=== PATIENT | female | born 1935 | race Caucasian/White ===

== ENCOUNTER 2018-05-09 19:17 | Inpatient (IN) ==
[2018-05-09] MEDS ORDERED: 0.9 % Sodium Chloride 1,000 ML IVC ONE ×2 (19:29→21:19)
[2018-05-09] MEDS ORDERED: Pantoprazole 80 MG in 0.9 % Sodium Chloride 50 ML IVPB ONE (19:29)
[2018-05-09] MEDS ORDERED: Octreotide 50 MCG/ML SYRINGE IVP ONE (19:29)
[2018-05-09] MEDS ORDERED: 0.9 % Sodium Chloride 1,000 ML ONE (19:31)
--- NOTE | 2018-05-09 19:38 | Emergency Department Note ---
Disposition Clinical Impression: GI bleed Qualifiers: GI bleed type/associated pathology: unspecified gastrointestinal hemorrhage type Qualified Code(s): K92.2 - Gastrointestinal hemorrhage, unspecified Leukocytosis Qualifiers: Leukocytosis type: unspecified Qualified Code(s): D72.829 - Elevated white blood cell count, unspecified Anemia Qualifiers: Anemia type: unspecified type Qualified Code(s): D64.9 - Anemia, unspecified CKD (chronic kidney disease) Qualifiers: Chronic kidney disease stage: unspecified stage Qualified Code(s): N18.9 - Chronic kidney disease, unspecified Disposition: Admitted As Inpatient Condition: Fair Referrals: NONE,PCP [Primary Care Provider] - Time of Disposition: 21:12 General Adult HPI - General Stated complaint: gi bleed Time Seen by Provider: 05/09/18 19:28 Source: patient, family, EMS Mode of arrival: EMS Limitations: no limitations Nursing Notes Reviewed: Yes Vital Signs Reviewed: Yes - History of Present Illness HPI Narrative: Patient is an 82-year-old female that presents the emergency department due to vomiting blood and having blood in her stool. Family states that today they were visiting her in the nursing facility where she was doing rehabilitation after a TIA and she was started not feeling well and vomiting coffee-ground emesis as well as having dark colored stool. Patient states that she just has not been feeling well and is been having pain in her upper abdomen. Family states that she has recently been put on Lovenox with her Coumadin due to having a subtherapeutic INR of 1.1 on previous admission. Family also states that she has had a previous GI bleed in the past but says that is been a long time ago and she required an NG tube and Protonix. - Related Data Home Medications Medication Instructions Recorded Confirmed Aspirin 81 mg PO DAILY 05/03/18 05/03/18 Atorvastatin [Lipitor] 40 mg PO HS 05/03/18 05/03/18 Calcium Citrate 600 mg PO DAILY 05/03/18 05/03/18 Captopril [Capoten] 12.5 mg PO TIDAC 05/03/18 05/03/18 Cyanocobalamin (Vitamin B-12) 1,000 mcg PO BID 05/03/18 05/03/18 [Vitamin B12] Furosemide [Lasix] 40 mg PO QPM 05/03/18 05/03/18 Furosemide [Lasix] 80 mg PO QAM 05/03/18 05/03/18 Garlic 1,000 mg PO DAILY 05/03/18 05/03/18 Metoprolol [Lopressor] 25 mg PO BID 05/03/18 05/03/18 Multivit-Min/Iron/Folic Acid/K 1 tab PO DAILY 05/03/18 05/03/18 [Adults Multivitamin Tablet] Potassium 396 mg PO DAILY 05/03/18 05/03/18 Previous Rx's Medication Instructions Recorded Warfarin [Coumadin] 3 mg PO 1800 7 Days #7 tablet 05/06/18 Allergies Allergy/AdvReac Type Severity Reaction Status Date / Time adhesive tape Allergy Rash Verified 05/09/18 19:47 Sulfa (Sulfonamide Allergy Hives Verified 05/09/18 19:47 Antibiotics) titanium Allergy Hives Verified 05/09/18 19:47 All systems ED: reviewed and negative except as stated. Constitutional: Denies: fever Cardiovascular: Denies: chest pain Respiratory: Denies: dyspnea Gastrointestinal: Reports: abdominal pain, nausea, vomiting, hematemesis, melena Past Medical History - Past Medical History Medical history: Reports: CVA, GERD, hyperlipidemia, hypertension, myocardial infarction, pulmonary embolus, TIA, valvular heart disease Surgical history: Reports: appendectomy, cataract, heart valve replacement, hip replacement, hysterectomy, knee replacement, other, pacemaker Psychiatric history: Reports: no psych history BEDSPREAD CUTTER history: Reports: no BEDSPREAD CUTTER history - Social History Smoking Status: Never smoker Smokeless Tobacco Status: No Alcohol use: Reports: rarely Drug use: Reports: none Physical Exam - General Limitations: no limitations General appearance: alert, in no apparent distress - Head Head exam: atraumatic, normocephalic - Eye Eye exam: Present: normal appearance, EOMI - Neck Neck exam: Present: normal inspection, full ROM, trachea midline - Respiratory Respiratory exam: Present: normal lung sounds bilaterally. Absent: respiratory distress, wheezes - Cardiovascular Cardiovascular exam: Present: regular rate, normal rhythm, normal heart sounds, +S1, +S2 - Abdominal Exam Abdominal exam: Present: soft, Non-Tender, normal bowel sounds - Neurological Exam Neurological exam: Present: alert, oriented X3 - Psychiatric Psychiatric exam: Present: normal affect, normal mood - Skin Skin exam: Present: warm, dry, intact Course Vital Signs Temperature 98.0 F 05/09/18 19:24 Pulse Rate 73 05/09/18 19:24 Respiratory Rate 24 05/09/18 19:24 Blood Pressure 104/47 05/09/18 19:24 O2 Sat by Pulse Oximetry 100 05/09/18 19:24 Temperature 98.0 F 05/09/18 19:24 Pulse Rate 68 05/09/18 21:02 Respiratory Rate 20 05/09/18 21:02 Blood Pressure 98/41 05/09/18 21:02 O2 Sat by Pulse Oximetry 98 05/09/18 21:02 Oxygen Delivery Oxygen Delivery Room Air Medical Decision Making - MDM Narrative Medical decision making narrative: Due the patient is not emergency Department was suspicion for GI bleed we will obtain CBC, BMP, troponin, type and screen patient will also be given Protonix and octreotide. Patient was started on IV fluids. Patient has a hemoglobin of 10.1. Her INR is 1.6 which is subtherapeutic however this is beneficial for the patient due to having potential bleeding. Patient does have an elevated white count which is likely secondary to her vomiting and is a nonspecific finding. I did call and speak to the on-call endoscopist who happens to be the GI provider Dr. Greer and she recommended the patient be admitted to the hospital but did not feel that she needs to be emergently scoped. He also recommended the patient be started on a Protonix drip. This will be done here in the emergency department and the patient will be admitted to the medical service with a GI consult. Patient does have some mild worsening of her baseline kidney function. Patient will require admission and further evaluation and management of her GI bleed. Patient has been stable throughout her stay here in the ER. I called a nd spoke with the admitting hospitalist Dr. Jacobson and he has accepted the patient to their service. Patient be admitted to the hospital this time for further evaluation and management. Due to the patient's systolic blood pressure being 98 I additional 1 L of fluids was ordered - Medical Records Medical records reviewed: Yes I reviewed the patient's medical records. - Lab Data Lab results reviewed: Yes I reviewed the patient's lab results. Result diagrams: 05/09/18 19:28 05/09/18 19:28 Lab Results 05/09/18 05/09/18 05/09/18 Range/Units 19:28 19:28 19:28 WBC 14.6 H D (4.3-11.1) K/mcL RBC 3.26 L (3.82-4.97) M/mcL Hgb 10.1 L (11.5-15.4) g/dL Hct 33.0 L (35.3-44.9) % MCV 101.2 H (83.0-100.0) fL MCH 31.0 (28.0-33.3) pg MCHC 30.6 L (31.6-35.5) g/dL RDW 14.8 H (11.5-14.5) % Plt Count 252 (140-400) K/mcL MPV 12.6 H (9.4-12.4) fL Immature Gran % 1.3 (0-4) % Seg Neutrophils % 88.9 % Lymphocytes % 5.3 % Monocytes % 4.0 % Eosinophils % 0.1 % Basophils % 0.4 % Neutrophils # 13.0 H (1.6-8.9) K/mcL Lymphocytes # 0.8 (0.6-4.6) K/mcL Monocytes # 0.6 (0.0-1.3) K/mcL Eosinophils # 0.0 (0.0-0.6) K/mcL Basophils # 0.1 (0.0-0.2) K/mcL PT 17.7 H (9.4-12.1) Seconds INR 1.6 APTT 34.9 (26.0-36.0) Seconds Sodium 143 (136-145) mEq/L Potassium 4.7 (3.5-5.1) mEq/L Chloride 103 (98-107) mEq/L Carbon Dioxide 27 (23-29) mEq/L BUN 55 H (8-23) mg/dL Creatinine 1.98 H (0.60-1.20) mg/dL Est GFR ( Amer) 29 L (> 60) Est GFR (Non-Af Amer) 24 L (> 60) BUN/Creatinine Ratio 28 H (6-26) Glucose 184 H (70-105) mg/dL Calculated Osmolality 316 H (280-300) Calcium 8.7 (8.6-10.3) mg/dL Blood Type Antibody Screen 05/09/18 Range/Units 19:28 WBC (4.3-11.1) K/mcL RBC (3.82-4.97) M/mcL Hgb (11.5-15.4) g/dL Hct (35.3-44.9) % MCV (83.0-100.0) fL MCH (28.0-33.3) pg MCHC (31.6-35.5) g/dL RDW (11.5-14.5) % Plt Count (140-400) K/mcL MPV (9.4-12.4) fL Immature Gran % (0-4) % Seg Neutrophils % % Lymphocytes % % Monocytes % % Eosinophils % % Basophils % % Neutrophils # (1.6-8.9) K/mcL Lymphocytes # (0.6-4.6) K/mcL Monocytes # (0.0-1.3) K/mcL Eosinophils # (0.0-0.6) K/mcL Basophils # (0.0-0.2) K/mcL PT (9.4-12.1) Seconds INR APTT (26.0-36.0) Seconds Sodium (136-145) mEq/L Potassium (3.5-5.1) mEq/L Chloride (98-107) mEq/L Carbon Dioxide (23-29) mEq/L BUN (8-23) mg/dL Creatinine (0.60-1.20) mg/dL Est GFR ( Amer) (> 60) Est GFR (Non-Af Amer) (> 60) BUN/Creatinine Ratio (6-26) Glucose (70-105) mg/dL Calculated Osmolality (280-300) Calcium (8.6-10.3) mg/dL Blood Type O POSITIVE Antibody Screen NEGATIVE - Radiology Data Radiology results reviewed: Yes I reviewed the patient's radiology results. - EKG Data EKG #1 EKG attestation: Yes I reviewed and interpreted this EKG. EKG results narrative: She is EKG shows a paced rhythm. Ventricular rate is approximately 75 bpm. There is no evidence of STEMI on EKG. This is compared to previous EKG on 05/02/18 which also showed a paced rhythm at a rate of 77 bpm.
[2018-05-09 19:45] LABS: Basophils # 0.1 K/mcL (0.0-0.2); Basophils % 0.4 %; Eosinophils % 0.1 %; Hemoglobin 10.1 g/dL (11.5-15.4); Immature Granulocytes % 1.3 % (0-4); Lymphocytes # 0.8 K/mcL (0.6-4.6); Lymphocytes % 5.3 %; Mean Corpuscular HGB Conc 30.6 g/dL (31.6-35.5); Mean Corpuscular Volume 101.2 fL (83.0-100.0); Mean Platelet Volume 12.6 fL (9.4-12.4); Monocytes # 0.6 K/mcL (0.0-1.3); Platelet Count 252 K/mcL (140-400); Red Blood Count 3.26 M/mcL (3.82-4.97); Red Cell Distribution Width 14.8 % (11.5-14.5); Segmented Neutrophils % 88.9 %
[2018-05-09 19:52] LABS: INR 1.6; Prothrombin Time 17.7 Seconds (9.4-12.1)
[2018-05-09 19:55] LABS: Activated Partial Thrombo Time 34.9 Seconds (26.0-36.0)
[2018-05-09 20:03] LABS: Calcium 8.7 mg/dL (8.6-10.3); Potassium 4.7 mEq/L (3.5-5.1)
--- NOTE | 2018-05-09 21:43 | Emergency Department Note ---
Disposition Clinical Impression: GI bleed Qualifiers: GI bleed type/associated pathology: unspecified gastrointestinal hemorrhage type Qualified Code(s): K92.2 - Gastrointestinal hemorrhage, unspecified Leukocytosis Qualifiers: Leukocytosis type: unspecified Qualified Code(s): D72.829 - Elevated white blood cell count, unspecified Anemia Qualifiers: Anemia type: unspecified type Qualified Code(s): D64.9 - Anemia, unspecified CKD (chronic kidney disease) Qualifiers: Chronic kidney disease stage: unspecified stage Qualified Code(s): N18.9 - Chronic kidney disease, unspecified Disposition: Admitted As Inpatient Condition: Fair Referrals: NONE,PCP [Primary Care Provider] - General Adult HPI - General Chief complaint: ED GI Bleed Stated complaint: gi bleed Time Seen by Provider: 05/09/18 19:28 Source: patient, family, EMS Mode of arrival: EMS Limitations: no limitations Nursing Notes Reviewed: Yes Vital Signs Reviewed: Yes - History of Present Illness Pain Scale: 0 - Related Data Home Medications Medication Instructions Recorded Confirmed Aspirin 81 mg PO DAILY 05/03/18 05/03/18 Atorvastatin [Lipitor] 40 mg PO HS 05/03/18 05/03/18 Calcium Citrate 600 mg PO DAILY 05/03/18 05/03/18 Captopril [Capoten] 12.5 mg PO TIDAC 05/03/18 05/03/18 Cyanocobalamin (Vitamin B-12) 1,000 mcg PO BID 05/03/18 05/03/18 [Vitamin B12] Furosemide [Lasix] 40 mg PO QPM 05/03/18 05/03/18 Furosemide [Lasix] 80 mg PO QAM 05/03/18 05/03/18 Garlic 1,000 mg PO DAILY 05/03/18 05/03/18 Metoprolol [Lopressor] 25 mg PO BID 05/03/18 05/03/18 Multivit-Min/Iron/Folic Acid/K 1 tab PO DAILY 05/03/18 05/03/18 [Adults Multivitamin Tablet] Potassium 396 mg PO DAILY 05/03/18 05/03/18 Previous Rx's Medication Instructions Recorded Warfarin [Coumadin] 3 mg PO 1800 7 Days #7 tablet 05/06/18 Allergies Allergy/AdvReac Type Severity Reaction Status Date / Time adhesive tape Allergy Rash Verified 05/09/18 19:47 Sulfa (Sulfonamide Allergy Hives Verified 05/09/18 19:47 Antibiotics) titanium Allergy Hives Verified 05/09/18 19:47 Constitutional: Denies: fever Cardiovascular: Denies: chest pain Respiratory: Denies: dyspnea Gastrointestinal: Reports: abdominal pain, nausea, vomiting, hematemesis, melena Past Medical History - Past Medical History Medical history: Reports: CVA, GERD, hyperlipidemia, hypertension, myocardial infarction, pulmonary embolus, TIA, valvular heart disease Surgical history: Reports: appendectomy, cataract, heart valve replacement, hip replacement, hysterectomy, knee replacement, other, pacemaker Psychiatric history: Reports: no psych history NUCLEAR PHYSICIST history: Reports: no NUCLEAR PHYSICIST history - Social History Smoking Status: Never smoker Smokeless Tobacco Status: No Alcohol use: Reports: rarely Drug use: Reports: none Physical Exam - General Limitations: no limitations General appearance: alert, in no apparent distress Course Vital Signs Temperature 98.0 F 05/09/18 19:24 Pulse Rate 73 05/09/18 19:24 Respiratory Rate 24 05/09/18 19:24 Blood Pressure 104/47 05/09/18 19:24 O2 Sat by Pulse Oximetry 100 05/09/18 19:24 Temperature 98.0 F 05/09/18 19:24 Pulse Rate 65 05/09/18 21:29 Respiratory Rate 20 05/09/18 21:29 Blood Pressure 93/36 05/09/18 21:29 O2 Sat by Pulse Oximetry 99 05/09/18 21:29 Oxygen Delivery Oxygen Delivery Room Air Medical Decision Making - Medical Records Medical records reviewed: Yes I reviewed the patient's medical records. - Lab Data Lab results reviewed: Yes I reviewed the patient's lab results. Result diagrams: 05/09/18 19:28 05/09/18 19:28 Lab Results 05/09/18 05/09/18 05/09/18 Range/Units 19:28 19:28 19:28 WBC 14.6 H D (4.3-11.1) K/mcL RBC 3.26 L (3.82-4.97) M/mcL Hgb 10.1 L (11.5-15.4) g/dL Hct 33.0 L (35.3-44.9) % MCV 101.2 H (83.0-100.0) fL MCH 31.0 (28.0-33.3) pg MCHC 30.6 L (31.6-35.5) g/dL RDW 14.8 H (11.5-14.5) % Plt Count 252 (140-400) K/mcL MPV 12.6 H (9.4-12.4) fL Immature Gran % 1.3 (0-4) % Seg Neutrophils % 88.9 % Lymphocytes % 5.3 % Monocytes % 4.0 % Eosinophils % 0.1 % Basophils % 0.4 % Neutrophils # 13.0 H (1.6-8.9) K/mcL Lymphocytes # 0.8 (0.6-4.6) K/mcL Monocytes # 0.6 (0.0-1.3) K/mcL Eosinophils # 0.0 (0.0-0.6) K/mcL Basophils # 0.1 (0.0-0.2) K/mcL PT 17.7 H (9.4-12.1) Seconds INR 1.6 APTT 34.9 (26.0-36.0) Seconds Sodium 143 (136-145) mEq/L Potassium 4.7 (3.5-5.1) mEq/L Chloride 103 (98-107) mEq/L Carbon Dioxide 27 (23-29) mEq/L BUN 55 H (8-23) mg/dL Creatinine 1.98 H (0.60-1.20) mg/dL Est GFR ( Amer) 29 L (> 60) Est GFR (Non-Af Amer) 24 L (> 60) BUN/Creatinine Ratio 28 H (6-26) Glucose 184 H (70-105) mg/dL Calculated Osmolality 316 H (280-300) Calcium 8.7 (8.6-10.3) mg/dL Blood Type Antibody Screen 05/09/18 Range/Units 19:28 WBC (4.3-11.1) K/mcL RBC (3.82-4.97) M/mcL Hgb (11.5-15.4) g/dL Hct (35.3-44.9) % MCV (83.0-100.0) fL MCH (28.0-33.3) pg MCHC (31.6-35.5) g/dL RDW (11.5-14.5) % Plt Count (140-400) K/mcL MPV (9.4-12.4) fL Immature Gran % (0-4) % Seg Neutrophils % % Lymphocytes % % Monocytes % % Eosinophils % % Basophils % % Neutrophils # (1.6-8.9) K/mcL Lymphocytes # (0.6-4.6) K/mcL Monocytes # (0.0-1.3) K/mcL Eosinophils # (0.0-0.6) K/mcL Basophils # (0.0-0.2) K/mcL PT (9.4-12.1) Seconds INR APTT (26.0-36.0) Seconds Sodium (136-145) mEq/L Potassium (3.5-5.1) mEq/L Chloride (98-107) mEq/L Carbon Dioxide (23-29) mEq/L BUN (8-23) mg/dL Creatinine (0.60-1.20) mg/dL Est GFR ( Amer) (> 60) Est GFR (Non-Af Amer) (> 60) BUN/Creatinine Ratio (6-26) Glucose (70-105) mg/dL Calculated Osmolality (280-300) Calcium (8.6-10.3) mg/dL Blood Type O POSITIVE Antibody Screen NEGATIVE - EKG Data EKG #1 EKG attestation: Yes I reviewed and interpreted this EKG. EKG results narrative: EKG shows an atrial ventricular pacemaker with a totally paced rhythm. Heart rate approximately 76. Critical Care Time Critical Care Time: Yes Total Critical Care Time: 40 Attestation: Critical care performed: Time is exclusive of separately billable procedures. Time includes: direct patient care, patient reassessment, coordination of patient care, interpretation of data (laboratory data, radiology data, and respiratory data), review of patient's medical records, medical consultation and documentation of patient care. Procedures included in critical care time: Procedures excluded from critical care time: Attestation Statement - Attestation Attestation: I, Gigi Meneses MD, personally evaluated this patient and discussed their management with the resident physician. I reviewed the resident's note and agree with the documented findings, medical decision making, and plan of care. 82-year-old female presents to the emergency department for acute GI bleeding and hypotension. Patient has been on Coumadin for years. Daughter reports she has a history of atrial fibrillation and was on Coumadin for that. She also had a valve replacement about 3 years ago. She was recently in the hospital for so me TIA symptoms and was discharged to an ECF three days ago. She was on Lovenox at discharge in addition to her Coumadin because her INR was subtherapeutic in the hospital. They have continued the Lovenox at the ECF but apparently today was her last dose. Earlier today she had an episode of vomiting dark coffee ground emesis. She then developed some diarrhea with very dark stool. No hematochezia. She became very pale and weak. Blood pressure was low. On arrival here in the emergency Department patient is pale. EMS reported hypotension but this seems to be improved on arrival here. She had IVs established and received fluids. Patient is oriented 3 however does seem somewhat confused. She states that she lives at home which she did until her recent hospital admission. She does admit to some abdominal pain. She denies chest pain and states her breathing feels okay however she is somewhat tachypneic. Oxygen saturation 100% on room air. On examination patient is a well-developed thin elderly female in mild distress. She is alert and oriented 3 but somewhat confused. She is pale. No cyanosis or diaphoresis. Breath sounds are equal bilaterally. Heart regular with a 3/6 systolic murmur. Abdomen is soft with mild epigastric tenderness. Slightly increased bowel sounds. Labs reviewed. EKG shows a paced rhythm. Patient received IV fluids. She received IV Protonix and placed on Protonix infusion. Dr. Angeles discussed with the endoscopist otolaryngology surgeon, Dr. Greer. The hospitalist, Dr. Pepper, was consulted and accepted admission of the patient.
[2018-05-09] MEDS: Pantoprazole 40 MG in 0.9 % Sodium Chloride Mini Bag 100 ML IVC SCH (22:09)
--- NOTE | 2018-05-09 23:33 | Internal Med History&Physical ---
<Gregg Piper José Miguel - Last Filed: 05/10/18 01:33> Date of Encounter: 05/09/18 Internal Medicine - H&P: HPI History of present illness: Ms. Crabtree is a 82 year old female Internal Medicine - H&P: Meds Aspirin 81 mg PO DAILY 05/03/18 [History] Atorvastatin [Lipitor] 40 mg PO HS 05/03/18 [History] Calcium Citrate 600 mg PO DAILY 05/03/18 [History] Captopril [Capoten] 12.5 mg PO TIDAC 05/03/18 [History] Cyanocobalamin (Vitamin B-12) [Vitamin B12] 1,000 mcg PO BID 05/03/18 [History] Furosemide [Lasix] 40 mg PO QPM 05/03/18 [History] Furosemide [Lasix] 80 mg PO QAM 05/03/18 [History] Garlic 1,000 mg PO DAILY 05/03/18 [History] Metoprolol [Lopressor] 25 mg PO BID 05/03/18 [History] Multivit-Min/Iron/Folic Acid/K [Adults Multivitamin Tablet] 1 tab PO DAILY 04/15 03/02 [History] Warfarin [Coumadin] 3 mg PO 1800 7 Days #7 tablet 05/06/18 [Rx] Potassium Chloride [K-Tab ER] 10 meq PO DAILY 05/09/18 [History] Allergy/AdvReac Type Severity Reaction Status Date / Time adhesive tape Allergy Rash Verified 05/09/18 19:47 Sulfa (Sulfonamide Allergy Hives Verified 05/09/18 19:47 Antibiotics) titanium Allergy Hives Verified 05/09/18 19:47 All Systems PM: A 10-system review of systems was performed and is negative for pertinent findings except as documented above in the HPI. - Constitutional Vitals: Temp Pulse Resp BP Pulse Ox 100.1 F H 81 17 123/51 92 05/09/18 23:40 05/09/18 23:40 05/09/18 23:40 05/09/18 23:40 05/09/18 23:40 Internal Med - H&P Results - Labs CBC & Chem 7: 05/09/18 19:28 05/09/18 19:28 Labs: Short CBC 05/09/18 Range/Units 19:28 WBC 14.6 H D (4.3-11.1) K/mcL Hgb 10.1 L (11.5-15.4) g/dL Hct 33.0 L (35.3-44.9) % Plt Count 252 (140-400) K/mcL Neutrophils # 13.0 H (1.6-8.9) K/mcL BMP 05/09/18 19:28 Sodium 143 Potassium 4.7 Chloride 103 Carbon Dioxide 27 BUN 55 H Creatinine 1.98 H Glucose 184 H Calcium 8.7 Liver Function 05/09/18 Range/Units 19:28 Total Bilirubin 0.6 (0.3-1.0) mg/dL Direct Bilirubin 0.1 (0.0-0.2) mg/dL AST 27 (13-39) Units/L ALT 19 (7-52) Units/L Alkaline Phosphatase 78 (34-104) Units/L Albumin 3.3 L (3.5-5.7) g/dL - Time Spent With Patient Total time spent is greater than 50% in coordination of care (as documented) at patient's floor/unit and/or counseling patient: - Attending Attestation I performed a history and physical examination of the patient and discussed the case with the resident. I reviewed the resident's note and agree with the assessment and plan. Short patient is an 82-year-old female with multiple comorbidities significant for atrial fibrillation on warfarin, bioprosthetic heart valve and recent hospitalization for TIA who comes in with one episode of coffee-ground emesis concerning for upper GI bleed. Patients pressure was initially tenuous in the ED but responded to fluid boluses. She was started on octreotide and a Protonix drip. Hemoglobin appears to be stable. Patient currently hemodynamically stable overall with no further evidence of GI bleed.. She does however have a mildly elevated leukocytosis and low-grade fever. I was able to elicit left lower quadrant abdominal tenderness to palpation. We will obtain CT of the abdomen without IV or oral contrast due to GARCIA to assess for source of infection/inflammation. Hold off antibiotics for now and obtain blood cultures in the morning. We will obtain UA to assess for UTI. GI is on board for possible endoscopy tomorrow. Holding patient's warfarin for now. Consider cardiology input for resuming anticoagulation. <Azra Noguera - Last Filed: 05/10/18 02:58> Date of Encounter: 05/10/18 Time of Encounter: 23:33 Internal Medicine - H&P: HPI Chief complaint: Vomiting Blood Admitted From: Home Plans for Post Hospital Care: Home History of present illness: Ms. Crabtree is a 82 year old female with PMHx significant for CVA, AFib on coumadin and with pacemaker, Valvular heart disease s/p bio-aortic valve replacement, CAD s/p [place], HTN, HLD, GERD, and previous hx of GI Bleed presenting to the ED today with 1 episode of coffee-ground emesis and multiple episodes of dark stool. Per daughter, pt was recently placed at [facility] for short term rehab three days ago s/p TIA admission which occurred 1 week ago. Pt has been on coumadin for multiple years for atrial fibrillation, and due to bio- prosthetic heart valve. However, at time of previous discharge, pt INR found to be subtherapeutic. Pt was then placed on Lovenox to bridge to Warfarin until therapeutic INR. Today was last dose on Lovenox. Daughter visited patient today and found her pale, lethargic, fatigued, and complaining of dizziness/lightheadedness, abdominal pain and nausea. When patient went to restroom, she had episode of hematemesis and was passing dark stool. Pt denies headache, vision changes, chest pain, SOB, slurred speech, facial drooping, one- sided extremity weakness. Pt's previous GI Bleed was >5 years ago per patient's daughter. She had been found to have peptic ulcers and placed on Protonix. However, daughter recently noted that she didn't see Protonix on her mother's medication list, and was not sure if she had been getting it over the past week. Pt was taken to ED via EMS where she was found to be hypotensive, but vital signs otherwise stable. In the ED: CBC: Leukocytosis (WBC = 14.6); Hb/Hct = 10.1/33.0 (seems to be at baseline) BMP: BUN/Cr = 55/1.98; GFR = 24 (slightly worse than baseline CKD Stage 3) INR = 1.6 Blood Type: O positive EKG: Paced Rhythm, ventricular rate = 75; No acute ST Changes Pt was started on IVF, and given Protonix and Octreotide. ED Physician, Dr. Angeles, spoke with front office specialist GI Physician, Dr. Greer, who did not feel emergent endoscopy was necessary. Currently, patient resting comfortably at bedside in no acute distress. Endors es mild abdominal pain, but denies fevers/chills, headache, vision changes, chest pain, palpitations, SOB, nausea, no further episodes vomiting, diarrhea, weakness. Plan for admission for management of acute GI Bleed. Past Med Surg Social Fam HX - Past Medical History Source: old records reviewed, obtained from family Medical history: CVA, GERD, hyperlipidemia, hypertension, myocardial infarction, pulmonary embolus, TIA, valvular heart disease Additional medical history: bleeding ulcers Psychiatric history: no psych history - Past Surgical History Surgical History: appendectomy, cataract, heart valve replacement, hip replacement, hysterectomy, knee replacement, other, pacemaker Additional surgical history: surgery on R femur - Social History Smoking Status: Never smoker Smokeless Tobacco Status: No Alcohol use: rarely Drug use: none - Family History Father Living Status: Hx Family Cardiac Disorders: Yes Hx Family Respiratory Disorders: No Hx Family Cancer: No Hx Family GI Disorders: Yes Hx Family Endocrine Disorder: No Hx Family Neuromuscular Disorders: No Hx Family Neurologic Disorders: No Hx Family HEENT Disorders: No Hx Family Autoimmune Disorders: No Mother Hx Family Cardiac Disorders: Yes (Heart valve replacment) All Systems PM: A 10-system review of systems was performed and is negative for pertinent findings except as documented above in the HPI. - Constitutional Constitutional: fatigue, lethargy, malaise, weakness, no chills, no fever(s), no falls - EENT Eyes: no blurry vision, no change in vision Nose, mouth and throat: no facial pain, no neck pain - Cardiovascular Cardiovascular ROS IM: lightheadedness, no chest pain, no dyspnea, no dyspnea on exertion, no edema, no palpitations - Respiratory Respiratory: no cough, no dyspnea, no hemoptysis - Gastrointestinal Gastrointestinal: abdominal pain, change in stool character, diarrhea, loose stools, melena, nausea - Musculoskeletal Musculoskeletal ROS IM: no back pain, no myalgias, no neck pain - Integumentary Integumentary IM: no rash - Neurological Neurological ROS: dizziness, no confusion, no headache(s) - Constitutional Vitals: Temp Pulse Resp BP Pulse Ox 98.0 F 76 21 110/48 93 05/09/18 19:24 05/09/18 22:51 05/09/18 22:51 05/09/18 22:51 05/09/18 22:51 General appearance: Present: cooperative, A&O X 3, pleasant, no acute distress, answers questions appropriately Exam: GEN: AOx3, NAD; resting comfortably in bed with daughter at bedside HEENT: Atraumatic, Normocephalic, PERRLA, EOMI, sclera anicteric, conjunctiva pink, mucous membranes moist CARDIO: 2/6 sytolic murmur; no rubs, gallops RESP: CTAB, no wheezes, rales, rhonchi GI: Soft, LLQ tender to palpation, mild diffuse tenderness, non-distended; bowel sounds present; no rebound or guarding NEURO: CN 2-12 intact; no focal deficits EXT: No LE swelling; no rash Internal Med - H&P Results - Labs CBC & Chem 7: 05/09/18 19:28 05/09/18 19:28 Labs: Short CBC 05/09/18 Range/Units 19:28 WBC 14.6 H D (4.3-11.1) K/mcL Hgb 10.1 L (11.5-15.4) g/dL Hct 33.0 L (35.3-44.9) % Plt Count 252 (140-400) K/mcL Neutrophils # 13.0 H (1.6-8.9) K/mcL BMP 05/09/18 19:28 Sodium 143 Potassium 4.7 Chloride 103 Carbon Dioxide 27 BUN 55 H Creatinine 1.98 H Glucose 184 H Calcium 8.7 - Assessment and plan (1) GI bleed Current Visit: Yes Status: Acute Assessment and plan: Ms. Crabtree is a 82 year old female with PMHx significant for CVA, AFib on coumadin and with pacemaker, Valvular heart disease s/p bio-aortic valve replacement, CAD s/p [place], HTN, HLD, GERD, and previous hx of GI Bleed presenting to the ED today with 1 episode of coffee-ground emesis and multiple episodes of dark stool. Hx of GI Bleed in the Past with Peptic Ulcers- >5 years ago Currently on Warfarin, Lovenox, and daily Aspirin Vitals stable in the ED; Slightly hypotensive, which improved after IVF Started on IVF and Protonix in the ED; Given 1 dose Octreotide Per GI rec, no need for emergent endoscopy PLAN: Cont IVF Cont Protonix Drip Zofran IVP PRN NPO GI recs appreciated CBC, BMP in the AM Qualifiers: GI bleed type/associated pathology: unspecified gastrointestinal hemorrhage type Qualified Code(s): K92.2 - Gastrointestinal hemorrhage, unspecified (2) Leukocytosis Current Visit: Yes Status: Acute Assessment and plan: Elevated WBC = 14.6 T = 100.1 Associated with fatigue, lethargy, LLQ abdominal tenderness to palpation PLAN: Eval for possible signs of infection Follow-up CT ABD/PELVIS w/out contrast - per daughter, pt has hx of diverticulitis Follow up Blood Cultures, Lactic Acid, UA Qualifiers: Leukocytosis type: unspecified Qualified Code(s): D72.829 - Elevated white blood cell count, unspecified (3) Afib Current Visit: No Status: Chronic Assessment and plan: On Coumadin - currently being bridged with Warfarin INR = 1.6 today, still subtherapeutic, but beneficial in setting of GI Bleed Not currently in Afib Pt has pacemaker EKG: Paced Rhythm, ventricular rate = 75; No acute ST Changes PLAN: Hold coumadin, lovenox for now Will use SCDs for DVT PPx Qualifiers: Atrial fibrillation type: unspecified Qualified Code(s): I48.91 - Unspecified atrial fibrillation (4) CAD (coronary artery disease) Current Visit: No Status: Chronic Assessment and plan: CAD s/p [place] Hold anticoagulants for now No chest pain, palpitations PLAN: Hold home meds for now: lipitor, captopril, lasix, lopressor Qualifiers: Coronary Disease-Associated Artery/Lesion type: [place] artery [place] vs. transplanted heart: [place] heart Associated angina: without angina Qualified Code(s): I25.10 - Atherosclerotic heart disease of [place] coronary artery without angina pectoris (5) CHF (congestive heart failure) Current Visit: No Status: Chronic Assessment and plan: Most recent Echo: 05/03/18 Impressions: LVEF 60-65%. Normal LV chamber size, wall thickness and function. Mild left ventricular diastolic dysfunction. Atypical septal motion consistent with paced rhythm. Normal right ventricular structure and function. Bioprosthetic aortic valve appears well seated in the LVOT. Leaflets were not well visualized. No aortic regurgitation visualized. Mean gradient 31 mmHg, peak velocity 3.57 m/s. Correlate with size and type of valve. Mild mitral regurgitation. Mild tricuspid regurgitation. Severe pulmonary hypertension. Estimated RVSP is 67 mmHg. PLAN: Hold home meds for now: lasix, captopril, lopressor Qualifiers: Heart failure type: diastolic Heart failure chronicity: chronic Qualified Code(s): I50.32 - Chronic diastolic (congestive) heart failure (6) CKD (chronic kidney disease) Current Visit: Yes Status: Acute Assessment and plan: Hx CKD Stage 3 Bun/Cr = 55/1.98 GFR = 24 Likely secondary to dehydration PLAN: Avoid nephrotoxic meds IVF BMP in AM Qualifiers: Chronic kidney disease stage: stage 3 (moderate) Qualified Code(s): N18.3 - Chronic kidney disease, stage 3 (moderate) (7) HLD (hyperlipidemia) Current Visit: No Status: Chronic Assessment and plan: Hold home meds for now: Statin Qualifiers: Hyperlipidemia type: unspecified Qualified Code(s): E78.5 - Hyperlipidemia, unspecified (8) H/O heart valve replacement with bioprosthetic valve Current Visit: No Status: Acute (9) Pacemaker Current Visit: No Status: Acute (10) DVT prophylaxis Current Visit: Yes Status: Acute Assessment and plan: Hold Anticoagulation PLAN: SCDs - Time Spent With Patient Total time spent is greater than 50% in coordination of care (as documented) at patient's floor/unit and/or counseling patient: less than 15 minutes
[2018-05-09] MEDS ORDERED: Naloxone 0.4 MG/ML INJ IVP PRN (23:40)
[2018-05-10] MEDS ORDERED: Ondansetron 4 MG/2 ML VIAL IVP PRN (01:02)
[2018-05-10 01:28] LABS: Albumin 3.3 g/dL (3.5-5.7); Albumin/Globulin Ratio 0.9 (1.1-2.2); Bilirubin,Direct 0.1 mg/dL (0.0-0.2); Bilirubin,Indirect 0.5 mg/dL (0.0-1.2); Bilirubin,Total 0.6 mg/dL (0.3-1.0); Globulin 3.6 g/dL (2.4-3.5); Total Protein 6.9 g/dL (6.4-8.9)
[2018-05-10] MEDS: 0.9 % Sodium Chloride 1,000 ML IVC SCH ×2 (02:29→19:02)
[2018-05-10 04:36] LABS: Basophils % 0.4 %; Eosinophils % 0.3 %; Immature Granulocytes % 0.9 % (0-4); Lymphocytes # 1.1 K/mcL (0.6-4.6); Lymphocytes % 11.1 %; Mean Corpuscular HGB Conc 30.4 g/dL (31.6-35.5); Mean Corpuscular Hemoglobin 30.3 pg (28.0-33.3); Mean Corpuscular Volume 99.6 fL (83.0-100.0); Mean Platelet Volume 12.8 fL (9.4-12.4); Monocytes # 1.1 K/mcL (0.0-1.3); Monocytes % 11.7 %; Neutrophils # 7.4 K/mcL (1.6-8.9); Platelet Count 160 K/mcL (140-400); Red Blood Count 2.41 M/mcL (3.82-4.97); Segmented Neutrophils % 75.6 %
[2018-05-10 04:39] LABS: Hemoglobin 7.3 g/dL (11.5-15.4)
[2018-05-10 04:41] LABS: INR 1.7; Prothrombin Time 19.3 Seconds (9.4-12.1)
[2018-05-10 04:52] LABS: Calcium 7.6 mg/dL (8.6-10.3); Potassium 4.4 mEq/L (3.5-5.1)
[2018-05-10] MEDS: Pantoprazole 40 MG in 0.9 % Sodium Chloride Mini Bag 100 ML IVC SCH ×4 (05:13→23:55)
[2018-05-10] MEDS ORDERED: 0.9 % Sodium Chloride 250 ML ONE (07:34)
--- NOTE | 2018-05-10 11:35 | Gastroenterology Consult Note ---
<Evgeny Castano - Last Filed: 05/10/18 11:32> Date of Encounter: 05/10/18 Time of Encounter: 09:35 - Assessment and plan (1) Anemia Current Visit: Yes Status: Acute Assessment and plan: Hgb 10.1 on admission and 7.3 today. Hgb was 11.8 on 05/02/2018. CT A/P with no acute findings. Continue to monitor CBC and transfuse PRBC as needed. Plan for EGD today to r/o esophagitis, gastritis, duodenitis, PUD, MW tear, or AVM. Keep patient NPO. Continue PPI. Qualifiers: Anemia type: unspecified type Qualified Code(s): D64.9 - Anemia, unspecified (2) GI bleed Current Visit: Yes Status: Acute Assessment and plan: As above. Qualifiers: GI bleed type/associated pathology: unspecified gastrointestinal hemorrhage type Qualified Code(s): K92.2 - Gastrointestinal hemorrhage, unspecified - Time Spent With Patient Total time spent is greater than 50% in coordination of care (as documented) at patient's floor/unit and/or counseling patient: GI History of Present Illness - Data of Consult Patient: new to practice Consult date: 05/10/18 Requesting Physician: Milo Tinajero - Consult Narrative Reason for consult: GI Bleed History of present illness: Ms. Crabtree is a 82 year old female with PMHx of CVA, AFib on coumadin and with pacemaker, Valvular heart disease s/p bio-aortic valve replacement, CAD s/p [place], HTN, HLD, GERD, and previous hx of GI Bleed (5 years ago, per patient) pre sented to the ED with 1 episode of coffee-ground emesis and multiple episodes of dark stool. Patient was started on Protonix gtt and Octreotide gtt on admission. Hgb 10.1 on admission and 7.3 today. Hgb was 11.8 on 05/02/2018. Patient has been hemodynamically stable with no further evidence of GI bleeding, and was changed to IV Protonix. Procedures: EGD 09/25/2014 Dr. Zuluaga: Normal NSAIDs: ASA Antocoagulation: Coumadin Past Med Surg Social Fam HX - Past Medical History Medical history: CVA, GERD, hyperlipidemia, hypertension, myocardial infarction, pulmonary embolus, TIA, valvular heart disease Additional medical history: bleeding ulcers Psychiatric history: no psych history - Past Surgical History Surgical History: appendectomy, cataract, heart valve replacement, hip replacement, hysterectomy, knee replacement, other, pacemaker Additional surgical history: surgery on R femur - Social History Smoking Status: Never smoker Smokeless Tobacco Status: No Alcohol use: rarely Drug use: none - Family History Father Living Status: Cause of : NC Hx Family Cardiac Disorders: Yes Hx Family Respiratory Disorders: No Hx Family Cancer: No Hx Family GI Disorders: Yes Hx Family Endocrine Disorder: No Hx Family Neuromuscular Disorders: No Hx Family Neurologic Disorders: No Hx Family HEENT Disorders: No Hx Family Autoimmune Disorders: No Mother Hx Family Cardiac Disorders: Yes (Heart valve replacment) Hx Family Endocrine Disorder: (Diabetes) - Gastrointestinal Gastrointestinal: Present: as per HPI - Constitutional Constitutional: as per HPI - EENT Eyes: as per HPI Ears: Present: as per HPI Nose, mouth and throat: Present: as per HPI - Cardiovascular Cardiovascular ROS: Present: as per HPI - Respiratory Respiratory IM: Present: as per HPI - Genitourinary Genitourinary: Absent: change in color, Urinary frequency - Neurological ROS Neurological GI: Present: as per HPI - Hematologic/Lymphatic Hematologic/Lymphatic pediatric: Present: as per HPI - Musculoskeletal Musculoskeletal ROS GI: Present: as per HPI - Integumentary Integumentary GI: Present: as per HPI - Psychiatric ROS Psychiatric GI: Present: as per HPI - Endocrine Endocrine IM: Present: as per HPI - Constitutional Vitals: Temp Pulse Resp BP Pulse Ox 98.0 F 80 17 122/47 94 05/10/18 10:18 05/10/18 10:18 05/10/18 08:15 05/10/18 10:18 05/10/18 10:18 General appearance: Present: cooperative, A&O X 3, no acute distress, answers questions appropriately - Head Head exam: Present: atraumatic, normocephalic - Eye Eye exam: Present: normal appearance, sclera anicteric - ENT ENT exam: Present: mucous membranes dry - Neck Neck exam general surgery: Present: normal inspection, trachea midline - Respiratory Respiratory exam: Present: CTAB - Cardiovascular Cardiovascular exam: Present: +S1, +S2 Additional comments: + murmur - GI/Abdominal GI/Abdominal exam: Present: soft, tenderness (epigastric), no peritoneal signs. Absent: distended, firm, guarding - Rectal Rectal exam: Present: deferred - Extremities Exam Extremities exam: Present: warm - Neurological Exam Neurological exam: Present: no focal deficits - Psychiatric Psychiatric exam: Present: normal affect, normal mood - Skin Skin exam: Present: dry, intact, normal color, warm Results - Labs CBC & Chem 7: 05/10/18 04:07 05/10/18 04:07 Labs: Last Result Calcium 7.6 mg/dL (8.6-10.3) L 05/10/18 04:07 Entire Visit Hgb 7.3 g/dL (11.5-15.4) L D 05/10/18 04:07 Hct 24.0 % (35.3-44.9) L 05/10/18 04:07 PT 19.3 Seconds (9.4-12.1) H 05/10/18 04:07 Total Bilirubin 0.6 mg/dL (0.3-1.0) 05/09/18 19:28 AST 27 Units/L (13-39) 05/09/18 19:28 ALT 19 Units/L (7-52) 05/09/18 19:28 Lipase 67 Units/L (11-82) 05/09/18 19:28 - ABG ABG results: PT/INR, D-dimer PT 19.3 Seconds (9.4-12.1) H 05/10/18 04:07 - Impressions Impressions Abdomen/Pelvis CT 05/10/18 01:03 IMPRESSION: No acute abdominopelvic findings. Cholelithiasis without evidence of acute cholecystitis. Colonic diverticulosis without evidence of diverticulitis. No evidence of urinary tract stone disease or obstructive uropathy. Features of congestive heart failure appreciated at the lung bases, included cardiomegaly with pulmonary edema and trace effusions. Hyperattenuating liver parenchyma may be seen with medication toxicity such as amiodarone. D/ / Oj Quarles / Oj Quarles Interpreting Provider: Oj Quarles Consult Discharge Plan - Plan Referrals: NONE,PCP [Primary Care Provider] - <Lj Greer - Last Filed: 05/11/18 12:10> Date of Encounter: 05/11/18 Time of Encounter: 14:00 - Time Spent With Patient Total time spent is greater than 50% in coordination of care (as documented) at patient's floor/unit and/or counseling patient: GI History of Present Illness - Data of Consult Requesting Physician: Kriss Herndon - Consult Narrative History of present illness: Ms. Crabtree is a 82 year old female - Constitutional Vitals: Temp Pulse Resp BP Pulse Ox 97.4 F L 87 18 141/58 97 05/11/18 06:49 05/11/18 06:49 05/11/18 06:49 05/11/18 06:49 05/11/18 06:49 Results - Labs CBC & Chem 7: 05/11/18 08:54 05/10/18 04:07 Labs: Last Result Calcium 7.6 mg/dL (8.6-10.3) L 05/10/18 04:07 Entire Visit Hgb 9.0 g/dL (11.5-15.4) L 05/11/18 08:54 Hct 28.7 % (35.3-44.9) L 05/11/18 08:54 PT 19.3 Seconds (9.4-12.1) H 05/10/18 04:07 Total Bilirubin 0.6 mg/dL (0.3-1.0) 05/09/18 19:28 AST 27 Units/L (13-39) 05/09/18 19:28 ALT 19 Units/L (7-52) 05/09/18 19:28 Lipase 67 Units/L (11-82) 05/09/18 19:28 - ABG ABG results: PT/INR, D-dimer PT 19.3 Seconds (9.4-12.1) H 05/10/18 04:07 - Attending Attestation I have personally performed a face to face evaluation on this patient. I have reviewed and agree with the care plan. History and Exam by me shows: Pt seem . 82 year old female with PMHx of CVA, AFib on coumadin and with pacemaker, Valvular heart disease s/p bio-aortic valve replacement, CAD s/p [place], HTN, HLD, GERD, and previous hx of GI Bleed (5 years ago, per patient) presented to the ED with 1 episode of coffee-ground emesis and multiple episodes of dark stool. O/E: abdomen is soft. A: Multiple comorbidities now with the coffee- ground emesis and also with melena. Recommendation: EGD today and if negative then colon tomorrow
--- NOTE | 2018-05-10 14:26 | Anesthesia Evaluation PreOp ---
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 History: CVA Other Medical History: GERD Anesthesia History: No Prior Anesthetic Complications, Past Anesthesia (appy, AVR, AVINASH, TKA, LUCI, pacer) Alcohol Use: rarely Drug use: none Medications and Allergies Aspirin 81 mg PO DAILY 05/03/18 [History] Atorvastatin [Lipitor] 40 mg PO HS 05/03/18 [History] Calcium Citrate 600 mg PO DAILY 05/03/18 [History] Captopril [Capoten] 12.5 mg PO TIDAC 05/03/18 [History] Cyanocobalamin (Vitamin B-12) [Vitamin B12] 1,000 mcg PO BID 05/03/18 [History] Furosemide [Lasix] 40 mg PO QPM 05/03/18 [History] Furosemide [Lasix] 80 mg PO QAM 05/03/18 [History] Garlic 1,000 mg PO DAILY 05/03/18 [History] Metoprolol [Lopressor] 25 mg PO BID 05/03/18 [History] Multivit-Min/Iron/Folic Acid/K [Adults Multivitamin Tablet] 1 tab PO DAILY 05/03/18 [History] Warfarin [Coumadin] 3 mg PO 1800 7 Days #7 tablet 05/06/18 [Rx] Potassium Chloride [K-Tab ER] 10 meq PO DAILY 05/09/18 [History] Ascorbic Acid [Vitamin C] 500 mg PO DAILY 05/10/18 [History] Allergy/AdvReac Type Severity Reaction Status Date / Time adhesive tape Allergy Rash Verified 05/09/18 19:47 Sulfa (Sulfonamide Allergy Hives Verified 05/10/18 13:36 Antibiotics) titanium Allergy Hives Verified 05/10/18 13:36 - Meds/Allergy Pre-op Review Medications Reviewed: Yes Allergies Reviewed: Yes Beta Blockers on Current Med List: Yes If Beta Blockers taken, Date/Time (Last Dose taken): unknown, not on MAR but on H&P Anesthesia Results - Labs 05/10/18 04:07 05/10/18 04:07 - Imaging EKG: report reviewed (Atrial-ventricular dual-paced rhythm No further analysis attempted due to paced rhythm) Anesthesia Exam Selected Entries 05/10/18 08:15 05/10/18 10:18 Temperature 98.0 F Pulse Rate 80 Respiratory Rate 17 Blood Pressure 122/47 O2 Sat by Pulse Oximetry 94 Oxygen Delivery Method Nasal Cannula Weight: 53kg NPO (# of Hours): 8 - HEENT Pupil (Motor): EOMI Mallampati: II Teeth: Poor dentition Oral Opening: Less than or equal to 3 - PUBLIC HOUSING INTERVIEWER LOC: Oriented [employer] H[employer]ING INTERVIEWER Motor: Normal RUE, Normal LUE, Normal RLE, Normal LLE, Normal Face [employer] H[employer]ING INTERVIEWER Sensory: Normal: RUE, LUE, RLE, LLE, Face - Cardiac Rhythm: Regular Murmur: Systolic (2/6) - Pulmonary Breath Sounds: bilateral Clear Respiratory Effort: Symmetrical Anesthesia Assess/Plan ASA Score: 3 Level of consciousness: Cooperative, Oriented, Tranquil Anesthetic Plan: MAC Monitoring Plan: Standard Monitors Recovery Plan: PACU (agrees to MAC)
[2018-05-10] MEDS ORDERED: SODIUM CHLORIDE/NAHCO3/KCL/PEG 4,000 ML SOLN.RECON PO ONE (17:00)
--- NOTE | 2018-05-10 20:22 | Gastroenterology Consult Note ---
Date of Encounter: 05/10/18 Time of Encounter: 14:00 - Time Spent With Patient Total time spent is greater than 50% in coordination of care (as documented) at patient's floor/unit and/or counseling patient: GI History of Present Illness - Data of Consult Requesting Physician: Milo Tinajero - Consult Narrative History of present illness: Ms. Crabtree is a 82 year old female Past Med Surg Social Fam HX - Past Medical History Medical history: CVA, GERD, hyperlipidemia, hypertension, myocardial infarction, pulmonary embolus, TIA, valvular heart disease Additional medical history: bleeding ulcers Psychiatric history: no psych history - Past Surgical History Surgical History: appendectomy, cataract, heart valve replacement, hip repla cement, hysterectomy, knee replacement, other, pacemaker Additional surgical history: surgery on R femur - Social History Smoking Status: Never smoker Smokeless Tobacco Status: No Alcohol use: rarely Drug use: none - Family History Father Living Status: Cause of : OR Hx Family Cardiac Disorders: Yes Hx Family Respiratory Disorders: No Hx Family Cancer: No Hx Family GI Disorders: Yes Hx Family Endocrine Disorder: No Hx Family Neuromuscular Disorders: No Hx Family Neurologic Disorders: No Hx Family HEENT Disorders: No Hx Family Autoimmune Disorders: No Mother Hx Family Cardiac Disorders: Yes (Heart valve replacment) Hx Family Endocrine Disorder: (Diabetes) - Constitutional Vitals: Temp Pulse Resp BP Pulse Ox 98.4 F 84 17 132/61 97 05/10/18 14:38 05/10/18 15:46 05/10/18 15:46 05/10/18 15:46 05/10/18 15:46 General appearance: Present: cooperative, A&O X 3, no acute distress, answers questions appropriately Results - Labs CBC & Chem 7: 05/10/18 04:07 05/10/18 04:07 Labs: Last Result Calcium 7.6 mg/dL (8.6-10.3) L 05/10/18 04:07 Entire Visit Hgb 7.3 g/dL (11.5-15.4) L D 05/10/18 04:07 Hct 24.0 % (35.3-44.9) L 05/10/18 04:07 PT 19.3 Seconds (9.4-12.1) H 05/10/18 04:07 Total Bilirubin 0.6 mg/dL (0.3-1.0) 05/09/18 19:28 AST 27 Units/L (13-39) 05/09/18 19:28 ALT 19 Units/L (7-52) 05/09/18 19:28 Lipase 67 Units/L (11-82) 05/09/18 19:28 - ABG ABG results: PT/INR, D-dimer PT 19.3 Seconds (9.4-12.1) H 05/10/18 04:07 - Impressions Impressions Abdomen/Pelvis CT 05/10/18 01:03 IMPRESSION: No acute abdominopelvic findings. Cholelithiasis without evidence of acute cholecystitis. Colonic diverticulosis without evidence of diverticulitis. No evidence of urinary tract stone disease or obstructive uropathy. Features of congestive heart failure appreciated at the lung bases, included cardiomegaly with pulmonary edema and trace effusions. Hyperattenuating liver parenchyma may be seen with medication toxicity such as amiodarone. D/ / Oj Quarles / Oj Quarles Interpreting Provider: Oj Quarles Consult Discharge Plan - Plan Referrals: NONE,PCP [Primary Care Provider] - - Attending Attestation I have personally performed a face to face evaluation on this patient. I have reviewed and agree with the care plan. History and Exam by me shows: Pt seen, Pt with coffee-ground emesis and multiple episodes of dark stool. o/E abd soft . REctal: Black stool .Has multiple medical issues. Rec: coffee-ground emesis and multiple episodes of dark stool. Rec: EGD and if negative then colon
--- NOTE | 2018-05-11 01:34 | Event Note ---
Date of Encounter: 05/11/18 Time of Encounter: 00:49 Alerted by patient's nurse ANDREIA Lozada that patient had nothing by mouth diet ordered because she was originally supposed to have colonoscopy. Patient and family refused colonoscopy d/t being told by physician at [facility] that the pt. should not have a colonoscopy d/t thin intestinal stevenson and hx of diverticulitis. Pt. is currently on Protonix gtt. Notified at 00:49 that pt. had copious amount of liquid black stool in disposable pants. Instructed nurse to keep pt. NPO. Checked pts. labs which showed Hgb of 7.3 on 05/10 at 04:07. Stat H/H ordered. Pt. had received one unit of PRBCs on 05/10/18 at 08:00. Pt was typed and screened on 05/09/18 and is O positive w/negative antibody screen. Went to see pt. who was resting in bed. I asked her if she still refused to have colonoscopy done. She stated yes. I instructed her that she was bleeding in the form of liquid black stool. I told the pt. that I was concerned about her continued blood loss and that she and her family may want to re-consider having the colonoscopy done since she was still actively bleeding. I also informed the pt. that I had ordered a stat H/H d/t her Hgb of 7.3 yesterday morning and would proceed with blood transfusions if her Hgb was still low. Pt. was asymptomatic on my exam w/the following VS: 98.6F temp, HR 89, RR 16, BP 134/57, SpO2 97% on 2L via NC. Hgb at 01:09 is 8.7. Order for timed H/H Q4HR starting at 05:00 placed to determine need for further transfusion if Hbg drops. Nurse instructed to monitor pt. closely and inform me of any changes. A.M. team should consider discussing situation w/pt. and family again regarding having colonoscopy performed d/t continued bleeding.
[2018-05-11 01:38] LABS: Hemoglobin 8.7 g/dL (11.5-15.4)
[2018-05-11] MEDS: Pantoprazole 40 MG in 0.9 % Sodium Chloride Mini Bag 100 ML IVC SCH ×2 (04:02→10:21)
[2018-05-11 05:47] LABS: Hematocrit 27.9 % (35.3-44.9); Hemoglobin 8.6 g/dL (11.5-15.4)
[2018-05-11] MEDS: 0.9 % Sodium Chloride 1,000 ML IVC SCH ×2 (06:10→17:04)
[2018-05-11 09:22] LABS: Hematocrit 28.7 % (35.3-44.9)
--- NOTE | 2018-05-11 09:50 | Internal Med Progress Note ---
<Kriss Herndon - Last Filed: 05/11/18 13:32> Hospitalist Progress Note - Encounter Date of Encounter: 05/11/18 - Exam Vitals: Temp Pulse Resp BP Pulse Ox 97.6 F 87 18 145/68 97 05/11/18 12:25 05/11/18 12:25 05/11/18 12:25 05/11/18 12:25 05/11/18 12:25 - Time Spent with Patient Total time spent is greater than 50% in coordination of care (as documented) at patient's floor/unit and/or counseling patient: Internal Medicine: Result - Labs CBC & Chem 7: 05/11/18 08:54 05/10/18 04:07 Labs: Short CBC 05/11/18 05/11/18 05/11/18 Range/Units 01:09 05:13 08:54 Hgb 8.7 L 8.6 L 9.0 L (11.5-15.4) g/dL Hct 27.0 L 27.9 L 28.7 L (35.3-44.9) % - ABG Interpretation ABG results: PT/INR, D-dimer PT 19.3 Seconds (9.4-12.1) H 05/10/18 04:07 Consult Discharge Plan - Plan Referrals: NONE,PCP [Primary Care Provider] - - Attending Attestation The history, physical exam, and medical decision making was performed by medical david Escalante either while I was physically present and actively involved or I personally re-performed the exam and medical decision making. I have verified the accuracy of the medical student's documentation with regards to the history, physical exam findings, and medical decision making. Ms Crabtree is here with coffee ground emesis and melena. GI is following,and she had normal egd, but currently family and pt are declining colonsocopy. awake, denies pain, abd pain, nausea, emesis. She has some mild confusion and memory difficulty that she admits to. She was unaware she had addl black stool last night. no prsyncoep or cp, or palpitations. She defers cscope decision to her son. gen- alert, awake,appears stated age eyes- pupils equal round, no conjunctival pallor cv- reg rate and rhythm, normal s1,s2, no murmurs appreciated lungs- ctabl, no wheezing, rhonchi or crackles abd- soft, non tender, non distended, + bs neuro- AAOxperson, place GIB with melena and hemetemesis- egd neg, gi following, rec as per d/w Dr Greer today is cscope, family and pt hesitant due to being toldin past she is high risk for perf if cscope, I personally d/w pt son Narinder and his by phone today, they will decide if procedd with cscope or to consult palliative care, IV PPI q 12h, npo, INR 1.7 on last check--give vit K today with cont bleeding overnight Acute Blood loss anemia 2/2 gib - serial h/hs throughout day today, thus far stable, transfuse hgb <7 or active bleeding Leukocytosis resolved without abx- ct a/p no acute findings, suspect reactive 2/2 bleed, cont to monitor Afib hx, currently NSR Bioprosthetic heart valve Hx - holding warfarin in setting of GIB, INR 1.7 on last check--give vit K today with cont bleeding overnight CAD Hx Diastolic CHF hx stable -holding home meds due to npo -monitor on ivfs CKD, stage uk, creat appears near baseline- cont to monitor, avoid nephrotoxic agents Severe Protein Calorie Malnutrition r/t decreased appetite and intake aeb 8% wt loss x 1 week and obvious fat/muscle loss.- currently npo , nutrition following <Jf Escalante - Last Filed: 05/11/18 14:29> Hospitalist Progress Note - Encounter Date of Encounter: 05/11/18 Time of Encounter: 09:00 - Subjective Interval History: Karyn is a 82 year-old female on hospital day 3 who presented to the ED with an episode of coffee-ground and multiple episodes of dark-colored stool. Patient was evaluated at bed side this morning and admits to fatigue and a sore throat 2 days ago, but states she is feeling much better overall. She denies any hematemesis or vomiting, nausea, diarrhea, melena, chest pain, palpitations, SOB, cough, wheezing, dysphagia, polyuria, dysuria, blood in the urine, weakne ss, numbness, or tingling. Attending spoke with patient and family. Plan is to either go the GI scope route or palliative. - Exam Vitals: Temp Pulse Resp BP Pulse Ox 97.4 F L 87 18 141/58 97 05/11/18 06:49 05/11/18 06:49 05/11/18 06:49 05/11/18 06:49 05/11/18 06:49 Exam: Gen: patient A/Ox3. In no acute distress. CV: RRR, 3/6 systolic murmur noted on auscultation. No gallop or rubs heard. Resp: CTA bilaterally with full breath sounds, symmetric thorax. No wheezes, rhonchi, or rales. GI: soft, non-tender, non-distended. BSx4. No hepatomegaly, splenomegaly, or lesions noted. Neuro: sensation normal in upper and lower extremities bilaterally. Strength normal in upper and lower extremities bilaterally. Extremities: radial and dorsalis pedis pulses +2. No LE edema. No rashes. - Assessment and Plan (1) GI bleed Current Visit: Yes Status: Acute Assessment and Plan: Patient is a 82-year-old female who presented to the ED 2 days ago with an episode of coffee-ground emesis and multiple episodes of dark-colored stool. She has a PMHx of CVA, Afib for which she is on coumadin and lovenox for, valvular heart disease, CAD, [place], HTN, hyperlipidemia, GERD, PE, and diverticulitis. In ED, patient received IV fluids which helped her hypotension. She was started on protonix, and received 1 dose of octreotide. An EGD was performed and was normal. Patients hemoglobin upon admission was 10.1. Yesterday (05/10/18), it dropped to 7.3, which is when the patient was transfused with 1 unit PRBCs. Today, patient's hemoglobin is 9.2. Plan: -Continue IVF -Switched from protonix drip to protonix BID. -Zofran IVP PRN -NPO -Monitor hemoglobin (2) Leukocytosis Current Visit: Yes Status: Acute Assessment and Plan: Patient was evaluated for signs of infection. CT w/o contrast of abdomen showed diffuse diverticulosis, but no diverticulitis. Lactic acid levels were normal. Plan: -Follow up blood cultures and UA. Results pending. (3) Afib Current Visit: No Status: Chronic Assessment and Plan: On Coumadin, which is being bridged with Warfarin INR = 1.7 today which is still subtherapeutic Patient has a pacemaker Patient has been on lopressor for rate control. Plan: -Hold coumadin, lovenox for now -Using SCDs for DVT prophylaxis (4) CAD (coronary artery disease) Current Visit: No Status: Chronic Assessment and Plan: CAD s/p [place] Hold anticoagulants Patient denies chest pain and palpitations Plan: -Hold home medications (5) CHF (congestive heart failure) Current Visit: No Status: Chronic Assessment and Plan: Most recent echo = 05/03/18 Impressions: LVEF 60-65%. Normal LV chamber size, wall thickness and function. Mild left ventricular diastolic dysfunction. Atypical septal motion consistent with paced rhythm. Normal right ventricular structure and function. Bioprosthetic aortic valve appears well seated in the LVOT. Leaflets were not well visualized. No aortic regurgitation visualized. Mean gradient 31 mmHg, peak velocity 3.57 m/s. Correlate with size and type of valve. Mild mitral regurgitation. Mild tricuspid regurgitation. Severe pulmonary hypertension. Estimated RVSP is 67 mmHg. Plan: -Hold home meds for now (6) CKD (chronic kidney disease) Current Visit: Yes Status: Acute Assessment and Plan: Baseline creatinine is 1.3-1.4. Current level is 1.47 Baseline GFR is 37-42. Current level is 34. On admission, creatinine was 1.98. Has since decreased to 1.47 from maintenance IVF Plan: -Continue IVF -Avoid nephrotoxic agents -Renal dose medications (7) HLD (hyperlipidemia) Current Visit: No Status: Chronic Assessment and Plan: Currently NPO. Holding lipitor. Awaiting patient and family decision for scoping w/ GI vs. palliative. (8) DVT prophylaxis Current Visit: Yes Status: Acute Assessment and Plan: Plan: -Use SCD for DVT prophylaxis. - Time Spent with Patient Total time spent is greater than 50% in coordination of care (as documented) at patient's floor/unit and/or counseling patient: Internal Medicine: Result - Labs CBC & Chem 7: 05/11/18 13:06 05/10/18 04:07 Labs: Short CBC 05/11/18 05/11/18 05/11/18 Range/Units 01:09 05:13 08:54 Hgb 8.7 L 8.6 L 9.0 L (11.5-15.4) g/dL Hct 27.0 L 27.9 L 28.7 L (35.3-44.9) % - ABG Interpretation ABG results: PT/INR, D-dimer PT 19.3 Seconds (9.4-12.1) H 05/10/18 04:07 <Jf Escalante W - Last Filed: 05/11/18 14:29> (1) GI bleed Qualifiers: GI bleed type/associated pathology: unspecified gastrointestinal hemorrhage type Qualified Code(s): K92.2 - Gastrointestinal hemorrhage, unspecified (2) Leukocytosis Qualifiers: Leukocytosis type: unspecified Qualified Code(s): D72.829 - Elevated white blood cell count, unspecified (3) Afib Qualifiers: Atrial fibrillation type: unspecified Qualified Code(s): I48.91 - Unspecified atrial fibrillation (4) CAD (coronary artery disease) Qualifiers: Coronary Disease-Associated Artery/Lesion type: tang[place]q artery [place] vs. tr ansplanted heart: tangirnaq heart Associated angina: without angina Qualified Code(s): I25.10 - Atherosclerotic heart disease of tang[place]q coronary artery without angina pectoris (5) CHF (congestive heart failure) Qualifiers: Heart failure type: diastolic Heart failure chronicity: chronic Qualified Code(s): I50.32 - Chronic diastolic (congestive) heart failure (6) CKD (chronic kidney disease) Qualifiers: Chronic kidney disease stage: stage 3 (moderate) Qualified Code(s): N18.3 - Chronic kidney disease, stage 3 (moderate) (7) HLD (hyperlipidemia) Qualifiers: Hyperlipidemia type: unspecified Qualified Code(s): E78.5 - Hyperlipidemia, unspecified
[2018-05-11 13:57] LABS: Hematocrit 29.2 % (35.3-44.9); Hemoglobin 9.2 g/dL (11.5-15.4)
[2018-05-11] MEDS ORDERED: SODIUM CHLORIDE/NAHCO3/KCL/PEG 4,000 ML SOLN.RECON PO ONE (16:41)
[2018-05-11 16:43] LABS: Hemoglobin 9.3 g/dL (11.5-15.4)
[2018-05-11] MEDS: Pantoprazole 40 MG VIAL IVP SCH (16:58)
[2018-05-11] MEDS ORDERED: Ipratropium Neb 0.5 MG NEBULIZER IH ONE (17:43)
[2018-05-11] MEDS ORDERED: Ipratropium/Albuterol Neb 3 ML ONE (17:44)
[2018-05-11] MEDS ORDERED: Ipratropium/Albuterol Neb 3 ML IH ONE (17:49)
[2018-05-11] MEDS ORDERED: Furosemide 20 MG/2 ML VIAL IVP ONE ×2 (17:58→18:00)
[2018-05-11 18:02] LABS: Hemoglobin 9.7 g/dL (11.5-15.4)
--- NOTE | 2018-05-11 18:53 | Event Note ---
Date of Encounter: 05/11/18 Time of Encounter: 17:40 Called to patient's room for increased SOB, increased coarse breath sounds, lower abdominal pain. Dr. Garza in attendance. Stat CXR/KUB, ipatropium, hgb, and trop obtained. ECG showed ventricular rate of 102; in setting of her pacemaker likely atrial lead sensing and subsequent AV synchronous depolarization. CXR showing edema versus infiltrate, KUB unable to discern free air based on relatively supine position; given Lasix IV in setting of increased rhonchorous sounds, fluids stopped was receiving 75cc/h mIVF, will trend troponin (initial 0.06) and get AM ECG (orders in). Continuing telemetry. Keeping hgb above 8 in setting of ACS/cardiac disease.
[2018-05-11 20:57] LABS: Hematocrit 31.9 % (35.3-44.9); Hemoglobin 9.8 g/dL (11.5-15.4)
[2018-05-12 00:31] LABS: Basophils # 0.1 K/mcL (0.0-0.2); Basophils % 0.5 %; Eosinophils # 0.2 K/mcL (0.0-0.6); Eosinophils % 1.1 %; Hematocrit 30.5 % (35.3-44.9); Hemoglobin 9.7 g/dL (11.5-15.4); Immature Granulocytes % 0.7 % (0-4); Lymphocytes % 6.2 %; Mean Corpuscular HGB Conc 31.8 g/dL (31.6-35.5); Mean Corpuscular Hemoglobin 30.9 pg (28.0-33.3); Mean Corpuscular Volume 97.1 fL (83.0-100.0); Monocytes # 1.4 K/mcL (0.0-1.3); Monocytes % 9.4 %; Neutrophils # 12.6 K/mcL (1.6-8.9); Platelet Count 217 K/mcL (140-400); Red Blood Count 3.14 M/mcL (3.82-4.97); Red Cell Distribution Width 16.4 % (11.5-14.5); Segmented Neutrophils % 82.1 %
[2018-05-12 00:38] LABS: INR 1.2; Prothrombin Time 13.9 Seconds (9.4-12.1)
[2018-05-12 00:54] LABS: BUN/Creatinine Ratio 25 (6-26); Blood Urea Nitrogen 20 mg/dL (8-23); Calcium 8.3 mg/dL (8.6-10.3); Carbon Dioxide 19 mEq/L (23-29); Chloride 118 mEq/L (98-107); Glucose 117 mg/dL (70-105); Osmolality,Calculated 308 (280-300); Sodium 147 mEq/L (136-145); eGFR For Non-African Americans > 60 (> 60)
[2018-05-12] MEDS ORDERED: Potassium Chloride 40 MEQ, Lidocaine 1% 2 ML in D5% in Water 500 ML IVPB ONE ×3 (01:15→22:30)
[2018-05-12 02:00] LABS: Bilirubin,Urine Negative (Negative); Blood,Urine Moderate (Negative); Clarity,Urine Clear (Clear); Color,Urine Yellow (Yellow); Glucose,Urine (UA) Normal (Normal); Ketones,Urine Trace mg/dL (Negative); Leukocyte Esterase,Urine Moderate (Negative); Nitrite,Urine Positive (Negative); PH,Urine 5.5 pH Units (5.0-8.0); Protein,Urine Negative (Neg-Trace); Specific Gravity,Urine 1.014 (1.010-1.025); Urobilinogen,Urine Normal (Normal)
[2018-05-12 02:10] LABS: Amorphous Sediment,Urine Moderate (Few); Bacteria,Urine Moderate per hpf (None-Few); Hyaline Casts,Urine Few per lpf (None-Few); RBC,Urine 30-50 per hpf (0-3); Squamous Epithelial Cell,Urine Few per lpf (None-Few); WBC,Urine 30-50 per hpf (0-3)
[2018-05-12] MEDS: Pantoprazole 40 MG VIAL IVP SCH ×2 (05:30→18:14)
[2018-05-12] MEDS ORDERED: ALPRAZolam 0.25 MG TABLET PO ONE (10:35)
[2018-05-12] MEDS ORDERED: Ipratropium/Albuterol Neb 3 ML IH PRN (10:35)
[2018-05-12] MEDS ORDERED: Furosemide 40 MG/4 ML VIAL IVP ONE (10:36)
[2018-05-12] MEDS: cefTRIAXone 2,000 MG in 0.9 % Sodium Chloride Mini Bag 100 ML IVPB SCH (11:11)
--- NOTE | 2018-05-12 13:27 | Anesthesia Evaluation PreOp ---
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: CVA (denies residual deficit) Other Medical History: Renal (CKD), GERD Anesthesia History: No Prior Anesthetic Complications, Past Anesthesia Alcohol Use: rarely Drug use: none Medications and Allergies Aspirin 81 mg PO DAILY 05/03/18 [History] Atorvastatin [Lipitor] 40 mg PO HS 05/03/18 [History] Calcium Citrate 600 mg PO DAILY 05/03/18 [History] Captopril [Capoten] 12.5 mg PO TIDAC 05/03/18 [History] Cyanocobalamin (Vitamin B-12) [Vitamin B12] 1,000 mcg PO BID 05/03/18 [History] Furosemide [Lasix] 40 mg PO QPM 05/03/18 [History] Furosemide [Lasix] 80 mg PO QAM 05/03/18 [History] Garlic 1,000 mg PO DAILY 05/03/18 [History] Metoprolol [Lopressor] 25 mg PO BID 05/03/18 [History] Multivit-Min/Iron/Folic Acid/K [Adults Multivitamin Tablet] 1 tab PO DAILY 05/03/18 [History] Potassium Chloride [K-Tab ER] 10 meq PO DAILY 05/09/18 [History] Ascorbic Acid [Vitamin C] 500 mg PO DAILY 05/10/18 [History] Allergy/AdvReac Type Severity Reaction Status Date / Time adhesive tape Allergy Rash Verified 05/09/18 19:47 Sulfa (Sulfonamide Allergy Hives Verified 05/10/18 13:36 Antibiotics) titanium Allergy Hives Verified 05/10/18 13:36 - Meds/Allergy Pre-op Review Medications Reviewed: Yes Allergies Reviewed: Yes Beta Blockers on Current Med List: Yes If Beta Blockers taken, Date/Time (Last Dose taken): stopped during this admission Anesthesia Results - Labs 05/13/18 05:06 05/13/18 05:06 - Imaging EKG: report reviewed (05/09/2018 Atrial-ventricular dual-paced complexes No further analysis attempted due to paced rhythm) Additional studies: 05/03/2018 Echo Impressions: LVEF 60-65%. Normal LV chamber size, wall thickness and function. Mild left ventricular diastolic dysfunction. Atypical septal motion consistent with paced rhythm. Normal right ventricular structure and function. Bioprosthetic aortic valve appears well seated in the LVOT. Leaflets were not well visualized. No aortic regurgitation visualized. Mean gradient 31 mmHg, peak velocity 3.57 m/s. Correlate with size and type of valve. Mild mitral regurgitation. Mild tricuspid regurgitation. Severe pulmonary hypertension. Estimated RVSP is 67 mmHg. 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
--- NOTE | 2018-05-12 13:27 | Electrocardiograph Report ---
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
--- NOTE | 2018-05-12 14:15 | Electrocardiograph Report ---
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
--- NOTE | 2018-05-12 14:17 | Electrocardiograph Report ---
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
--- NOTE | 2018-05-12 14:21 | Internal Med Progress Note ---
<Kriss Herndon - Last Filed: 05/12/18 15:31> Hospitalist Progress Note - Encounter Date of Encounter: 05/12/18 - Exam Vitals: Temp Pulse Resp BP Pulse Ox 97.7 F 88 20 148/66 97 05/12/18 11:00 05/12/18 11:00 05/12/18 11:00 05/12/18 11:00 05/12/18 11:00 - Time Spent with Patient Total time spent is greater than 50% in coordination of care (as documented) at patient's floor/unit and/or counseling patient: Internal Medicine: Result - Labs CBC & Chem 7: 05/12/18 00:19 05/12/18 00:19 Labs: Short CBC 05/11/18 05/11/18 05/11/18 Range/Units 16:33 17:51 20:38 WBC (4.3-11.1) K/mcL Hgb 9.3 L 9.7 L 9.8 L (11.5-15.4) g/dL Hct 29.0 L 31.0 L 31.9 L (35.3-44.9) % Plt Count (140-400) K/mcL Neutrophils # (1.6-8.9) K/mcL 05/12/18 Range/Units 00:19 WBC 15.3 H D (4.3-11.1) K/mcL Hgb 9.7 L (11.5-15.4) g/dL Hct 30.5 L (35.3-44.9) % Plt Count 217 (140-400) K/mcL Neutrophils # 12.6 H (1.6-8.9) K/mcL BMP 05/12/18 00:19 Sodium 147 H Potassium 3.0 L Chloride 118 H Carbon Dioxide 19 L BUN 20 Creatinine 0.79 Glucose 117 H Calcium 8.3 L Cardiac Enzymes 05/11/18 05/12/18 05/12/18 Range/Units 17:51 00:19 05:53 Troponin I 0.06 H* 0.10 H* 0.08 H* (< 0.04) ng/mL Urine 05/12/18 Range/Units 01:15 Urine Color Yellow (Yellow) Urine Clarity Clear (Clear) Urine pH 5.5 (5.0-8.0) pH Units Ur Specific [place] 1.014 (1.010-1.025) Urine Protein Negative (Neg-Trace) mg/dL Urine Glucose (UA) Normal (Normal) mg/dL - ABG Interpretation ABG results: PT/INR, D-dimer PT 13.9 Seconds (9.4-12.1) H 05/12/18 00:19 - Impressions Impressions Chest X-Ray 05/11/18 17:39 IMPRESSION: Patchy perihilar opacities, which could represent pulmonary edema versus developing infection. A small right pleural effusion is suspected. D/ / Patel Moore MD / Patel Moore MD Interpreting Provider: Patel Moore MD X-Ray 05/11/18 17:42 IMPRESSION: Nonspecific bowel gas pattern. Evaluation for free air is limited by supine positioning. D/ / Patel Moore MD / Patel Moore MD Interpreting Provider: Patel Moore MD Consult Discharge Plan - Plan Referrals: NONE,PCP [Primary Care Provider] - - Attending Attestation The history, physical exam, and medical decision making was performed by medical david Escalante either while I was physically present and actively involved or I personally re-performed the exam and medical decision making. I have verified the accuracy of the medical student's documentation with regards to the history, physical exam findings, and medical decision making. Ms Crabtree is here with coffee ground emesis and melena. GI is following,and she had egd, and cscope is pending awake, denies abd pain, n/v/diarrhea. Had some pain across chest this morning, sob is improved. denies wheezing, cough. Denies palpitations, presyncope. did bowel prep for cscope this afternoon. gen- alert, awake,appears stated age eyes- pupils equal round, no conjunctival pallor cv- reg rate and rhythm, normal s1,s2, no murmurs appreciated, no le edema, no jvd lungs- crackles faint, bl bases, no rhonchi or wheezing, normal resp effort on o2 nc abd- soft, non tender, mildly distended, + bs neuro- AAOxperson, place GIB with melena and hemetemesis- egd result d/w Dr Greer, ??AVM on report though he believes study was normal and that cscope will likely yield source of bleeding, healed ulcer, gi following, cscope today, IV PPI q 12h, inr down to 1.2 s/p vit k Acute Blood loss anemia 2/2 gib - serial h/hs stable transfuse hgb <8 or active bleeding Leukocytosis resolved without abx initially then returned 05/12, suspect 2/2 uti - ct a/p no acute findings -CXR with some patchy opacities vasc congestion vs developing infection--at this time examines and symptoms of fluid overload and not pna, will cont to monitor -UA + infection - initiate rocephin, ucx pending Afib hx, currently NSR Bioprosthetic heart valve Hx - holding warfarin in setting of GIB, INR 1.2 -cards consulted and following-agree cont to hold ac, does not require asa any further, would resume ac when/if ok to do so by gi CAD Hx with chest pain episode and trop elevation acute on chronic Diastolic CHF -trop peak 0.10 suspected demand ischemia- no further work up warranted -cont iv lasix (home dose had been held while fluid resuscitating) -cards following -home meds when able to take po minus asa as above Hypokalemia- IV repletion, repeat levels tonight CKD, stage uk, creat appears near baseline- cont to monitor, avoid nephrotoxic agents Severe Protein Calorie Malnutrition r/t decreased appetite and intake aeb 8% wt loss x 1 week and obvious fat/muscle loss.- currently npo , nutrition following <Jf Escalante - Last Filed: 05/12/18 16:54> Hospitalist Progress Note - Encounter Date of Encounter: 05/12/18 Time of Encounter: 09:30 - Subjective Interval History: Karyn is a 82 year-old female on hospital day 4 who presented to the ED with an episode of coffee-ground and multiple episodes of dark-colored stool. Patient was evaluated at bed side this morning and admits to chest pain, palpitations, and SOB. She denies fevers, fatigue, nausea, vomiting, diarrhea, melena, cough, wheezing, polyuria, dysuria, blood in the urine, muscle pain, joint pain, weakness, numbness, tingling, and paralysis. Patient will have a colonoscopy performed today. - Exam Vitals: Temp Pulse Resp BP Pulse Ox 97.7 F 88 20 148/66 97 05/12/18 11:00 05/12/18 11:00 05/12/18 11:00 05/12/18 11:00 05/12/18 11:00 Exam: Gen: patient A/Ox3. In no acute distress. CV: RRR, 3/6 systolic murmur auscultated. No gallop or rubs. Resp: crackles heard in lower lung lobes bilaterally. Symmetric thorax. No wheezes or rhonchi. GI: soft, non-tender, non-distended. BSx4. No hepatomegaly, splenomegaly, or lesions. Neuro: sensation normal in UE and LE bilaterally. Strength normal in UE and LE bilaterally. Extrem: radial and dorsalis pedis pulses +2. No LE edema noted. No rashes. - Assessment and Plan (1) GI bleed Current Visit: Yes Status: Acute Assessment and Plan: Patient is a 82-year-old female who presented to the ED on 05/09/18 with an episode of coffee-ground emesis and multiple episodes of dark-colored stool. She has a PMHx of CVA, Afib for which she is on coumadin and lovenox for, valvular heart disease, CAD, DC, HTN, hyperlipidemia, GERD, PE, and diverticulitis. In ED, patient received IV fluids which helped her hypotension. She was started on protonix, and received 1 dose of octreotide. An EGD was performed and was normal. A colonoscopy should be done today. Patients hemoglobin upon admission was 10.1. On 05/10/18 it dropped to 7.3, which is when the patient was transfused with 1 unit PRBCs. Today, patient's hemoglobin is 9.2. Plan: -Hold warfarin for GI bleed -NPO -Monitor hemoglobin levels -Wait to hear results of colonoscopy (2) Leukocytosis Current Visit: Yes Status: Acute Assessment and Plan: Patient was evaluated for signs of infection. CT w/o contrast of abdomen showed diffuse diverticulosis, but no diverticulitis. Lactic acid levels were normal. The leukocytosis returned to normal 05/10/18, but is present again at 15.6. UA showed evidence of UTI, with nitrites and leukocyte esterase being positive, and bacteria being present. A moderate amount of blood was also present. Plan: -Start rocephin -Blood cultures results pending (3) Afib Current Visit: No Status: Chronic Assessment and Plan: On Coumadin, which is being bridged with Warfarin Patient has NSR INR = 1.2 today which is still subtherapeutic Patient has a pacemaker and a biprosthetic valve. Patient has been on lopressor for rate control. Cardiology consulted and is following. They agree to hold coumadin - patient can continue coumadin when GI approves. Patient does not need ASA anymore. Plan: -Continue to hold coumadin, lovenox for now for the GI bleed. -Using SCDs for DVT prophylaxis (4) CAD (coronary artery disease) Current Visit: No Status: Chronic Assessment and Plan: CAD s/p DC Patient has acute on chronic diastolic HF. Patient had chest pain yesterday evening, with an elevated troponin level on 0.10. Believed to be demand ischemia. Patient still admits to some chest pain today. Patient on duoneb for her SOB, and was given one xanax for her anxiety when she had this flare-up. Plan: -IV lasix -Hold home medications -Cardiology is following (5) CHF (congestive heart failure) Current Visit: No Status: Chronic Assessment and Plan: Patient has acute on chronic diastolic HF. Plan: -Hold home meds for now -Echo is pending (6) CKD (chronic kidney disease) Current Visit: Yes Status: Acute Assessment and Plan: Baseline creatinine is 1.3-1.4. Current level is 0.79 Baseline GFR is 37-42. Current level is >60. On admission, creatinine was 1.98. Has since decreased to 0.79 from maintenance IVF. Potassium is low today at 3.0. Plan: -Check K+ and mag levels at 8pm tonight -IV repletion of K+ -Continue to monitor creatinine levels -Avoid nephrotoxic agents -Renal dose medications (7) HLD (hyperlipidemia) Current Visit: No Status: Chronic Assessment and Plan: Plan: -Currently NPO. Holding lipitor (8) DVT prophylaxis Current Visit: Yes Status: Acute Assessment and Plan: Plan: -Use SCD for DVT prophylaxis - Time Spent with Patient Total time spent is greater than 50% in coordination of care (as documented) at patient's floor/unit and/or counseling patient: Internal Medicine: Result - Labs CBC & Chem 7: 05/12/18 00:19 05/12/18 00:19 Labs: Short CBC 05/11/18 05/11/18 05/11/18 Range/Units 16:33 17:51 20:38 WBC (4.3-11.1) K/mcL Hgb 9.3 L 9.7 L 9.8 L (11.5-15.4) g/dL Hct 29.0 L 31.0 L 31.9 L (35.3-44.9) % Plt Count (140-400) K/mcL Neutrophils # (1.6-8.9) K/mcL 05/12/18 Range/Units 00:19 WBC 15.3 H D (4.3-11.1) K/mcL Hgb 9.7 L (11.5-15.4) g/dL Hct 30.5 L (35.3-44.9) % Plt Count 217 (140-400) K/mcL Neutrophils # 12.6 H (1.6-8.9) K/mcL BMP 05/12/18 00:19 Sodium 147 H Potassium 3.0 L Chloride 118 H Carbon Dioxide 19 L BUN 20 Creatinine 0.79 Glucose 117 H Calcium 8.3 L Cardiac Enzymes 05/11/18 05/12/18 05/12/18 Range/Units 17:51 00:19 05:53 Troponin I 0.06 H* 0.10 H* 0.08 H* (< 0.04) ng/mL Urine 05/12/18 Range/Units 01:15 Urine Color Yellow (Yellow) Urine Clarity Clear (Clear) Urine pH 5.5 (5.0-8.0) pH Units Ur Specific [place] 1.014 (1.010-1.025) Urine Protein Negative (Neg-Trace) mg/dL Urine Glucose (UA) Normal (Normal) mg/dL - ABG Interpretation ABG results: PT/INR, D-dimer PT 13.9 Seconds (9.4-12.1) H 05/12/18 00:19 - Impressions Impressions Chest X-Ray 05/11/18 17:39 IMPRESSION: Patchy perihilar opacities, which could represent pulmonary edema versus developing infection. A small right pleural effusion is suspected. D/ / Patel Moore MD / Patel Moore MD Interpreting Provider: Patel Moore MD X-Ray 05/11/18 17:42 IMPRESSION: Nonspecific bowel gas pattern. Evaluation for free air is limited by supine positioning. D/ / Patel Moore MD / Patel Moore MD Interpreting Provider: Patel Moore MD ___ <Jf Escalante W - Last Filed: 05/12/18 16:54> (1) GI bleed Qualifiers: GI bleed type/associated pathology: unspecified gastrointestinal hemorrhage type Qualified Code(s): K92.2 - Gastrointestinal hemorrhage, unspecified (2) Leukocytosis Qualifiers: Leukocytosis type: unspecified Qualified Code(s): D72.829 - Elevated white blood cell count, unspecified (3) Afib Qualifiers: Atrial fibrillation type: unspecified Qualified Code(s): I48.91 - Unspecified atrial fibrillation (4) CAD (coronary artery disease) Qualifiers: Coronary Disease-Associated Artery/Lesion type: [place] artery [place] vs. transplanted heart: [place] heart Associated angina: without angina Qualified Code(s): I25.10 - Atherosclerotic heart disease of [place] coronary artery without angina pectoris (5) CHF (congestive heart failure) Qualifiers: Heart failure type: diastolic Heart failure chronicity: chronic Qualified Code(s): I50.32 - Chronic diastolic (congestive) heart failure (6) CKD (chronic kidney disease) Qualifiers: Chronic kidney disease stage: stage 3 (moderate) Qualified Code(s): N18.3 - Chronic kidney disease, stage 3 (moderate) (7) HLD (hyperlipidemia) Qualifiers: Hyperlipidemia type: unspecified Qualified Code(s): E78.5 - Hyperlipidemia, unspecified
--- NOTE | 2018-05-12 15:14 | Cardiology Consult Note ---
Addendum entered and electronically signed by Darshan Bowen MD 05/13/18 11:47: I examined this patient and my medical decision-making was reviewed with the MOTOR LODGE CLERK. I agree with the documented findings, disposition and treatment plan as described except to the extent set forth below. A/P: GI bleed with acute blood loss anemia AF CHF sp bioprosthetic AVR Resume coumadin when able from GI standpoint INR 2-3. Can hold aspirin. Chronic coumadin for high chadsvasc AF, not for bioprosthetic AVR. Thank you for the consult, Darshan Bowen MD [facility] Original Note: Date of Encounter: 05/12/18 Time of Encounter: 14:45 Assessment and Plan (1) GI bleed Current Visit: Yes Status: Acute Per cardiology: -Admitted with acute GI bleed. -EGD yesterday with ??AVM, treated with argon plasma, medium healed ulcer. -Colonoscopy pending today. -Management per primary and GI services. Qualifiers: GI bleed type/associated pathology: unspecified gastrointestinal hemorrhage type Qualified Code(s): K92.2 - Gastrointestinal hemorrhage, unspecified (2) Afib Current Visit: No Status: Chronic Per caridology: -Known history of a.fib. -Was on BB in outpatient setting. -HR controlled. -[id number] score 8 (age 3, gender, HTN, CHF, vascular disease, CVA/embolic event2). Was on coumadin for anticoagulation in outpatient setting. Now on hold due to acute blood loss, pending GI work up. -With significantly elevated lafin9tvos score would recommend resuming anticoagulation if/when ok with GI services. Patient and family edcuated on increased risk of CVA/embolic event while off anticoagulation. Of note, was also on ASA in outpatient setting, ok to discontinue. -Continue BB when able to take oral medications. Qualifiers: Atrial fibrillation type: unspecified Qualified Code(s): I48.91 - Unspecified atrial fibrillation (3) CHF (congestive heart failure) Current Visit: No Status: Chronic Per cardiology: -Known diastolic CHF, see TTE as above. -Was on lasix in outpatient setting. -Episode of VENANCIO, given IV lasix, IVF stopped. Reports symptom improvement. -Net positive fluid balance of 4900ml. -Strict i/os, fluid restriction, daily weights. -Agree with IV diuresis, if renal function remains stable, would continue with duresis. -Continue po lasix at discharge. -CHF education reviewed with patient and family. Qualifiers: Heart failure type: diastolic Heart failure chronicity: chronic Qualified Code(s): I50.32 - Chronic diastolic (congestive) heart failure (4) H/O heart valve replacement with bioprosthetic valve Current Visit: No Status: Chronic Per cardiology: -Known bioprosthetic AV replacement [facility] 2014. -TTE 05/03/18 with LVEF 60-65%. Normal LV chamber size, wall thickness and function. Mild left ventricular diastolic dysfunction. Atypical septal motion consistent with paced rhythm. Normal right ventricular structure and function. Bioprosthetic aortic valve appears well seated in the LVOT. Leaflets were not well visualized. No aortic regurgitation visualized. Mean gradient 31 mmHg, peak velocity 3.57 m/s. Correlate with size and type of valve. Mild mitral regurgitation. Mild tricuspid regurgitation. Severe pulmonary hypertension. Estimated RVSP is 67 mmHg. Left Ventricular Wall Motion: Rest Echo Findings All wall segments showed normal motion. -Follows with [facility]. (5) Elevated troponin Current Visit: No Status: Acute Per cardiology: -Troponins flat and adynamic in the setting of acute blood loss anemia, GARCIA, CHF. -Denies chest pain. -No acute ischemic ECG changes. -Reported [facility] 2014 prior to AV with non-obstructive CAD. -TTE 05/03/18 as above with LVEF preserved, no segmental wall motion abnormalities. -On asa, statin, bb in outpatient setting. -Demand ischemia. No further testing warranted. No cardiac rehab consult warranted. Discussion w patient/family: The assessment and plan as outlined above was discussed with the patient and/or family members who expressed understanding and agreement. All questions were answered. Thank you for involving us in the care of your patient. Please call with any questions. Discussed and reviewed with . History of Present Illness Consult date: 05/12/18 Requesting physician: Helen Collazo Consult reason: elevated troponin, anticoagulation recommendations Chief complaint: hematemesis History of present illness: Ms. Crabtree is a 82 year old female with a relevant past medical history of HTN, PVD, GERD, a.fib on coumadin, TIA/CVA, pacemaker, Aortic stenosis s/p bioprosthetic AV, non-obstructive CAD, PE, CHF, GI bleed who presented to [facility] with complaints of hematemesis and melena. Patient denies chest pain. Reports shortness of breath. Reports fatigue. Patient follows with [facility] cardiology. Past Med Surg Social Fam HX - Past Medical History Attestation: Yes The following information was validated with the patient. Source: patient, old records reviewed Medical history: coronary artery disease, CVA, GERD, GI bleed, hyperlipidemia, hypertension, myocardial infarction, pulmonary embolus, TIA, valvular heart disease Additional medical history: bleeding ulcers Psychiatric history: no psych history - Past Surgical History Surgical History: appendectomy, cataract, heart valve replacement, hip re placement, hysterectomy, knee replacement, other, pacemaker Additional surgical history: surgery on R femur - Social History Smoking Status: Never smoker Smokeless Tobacco Status: No Alcohol use: rarely Drug use: none - Family History Father Living Status: Cause of : PR Hx Family Cardiac Disorders: Yes Hx Family Respiratory Disorders: No Hx Family Cancer: No Hx Family GI Disorders: Yes Hx Family Endocrine Disorder: No Hx Family Neuromuscular Disorders: No Hx Family Neurologic Disorders: No Hx Family HEENT Disorders: No Hx Family Autoimmune Disorders: No Mother Hx Family Cardiac Disorders: Yes (Heart valve replacment) Hx Family Endocrine Disorder: (Diabetes) Medications and Allergies Aspirin 81 mg PO DAILY 05/03/18 [History] Atorvastatin [Lipitor] 40 mg PO HS 05/03/18 [History] Calcium Citrate 600 mg PO DAILY 05/03/18 [History] Captopril [Capoten] 12.5 mg PO TIDAC 05/03/18 [History] Cyanocobalamin (Vitamin B-12) [Vitamin B12] 1,000 mcg PO BID 05/03/18 [History] Furosemide [Lasix] 40 mg PO QPM 05/03/18 [History] Furosemide [Lasix] 80 mg PO QAM 05/03/18 [History] Garlic 1,000 mg PO DAILY 05/03/18 [History] Metoprolol [Lopressor] 25 mg PO BID 05/03/18 [History] Multivit-Min/Iron/Folic Acid/K [Adults Multivitamin Tablet] 1 tab PO DAILY 05/03/18 [History] Warfarin [Coumadin] 3 mg PO 1800 7 Days #7 tablet 05/06/18 [Rx] Potassium Chloride [K-Tab ER] 10 meq PO DAILY 05/09/18 [History] Ascorbic Acid [Vitamin C] 500 mg PO DAILY 05/10/18 [History] Allergy/AdvReac Type Severity Reaction Status Date / Time adhesive tape Allergy Rash Verified 05/09/18 19:47 Sulfa (Sulfonamide Allergy Hives Verified 05/10/18 13:36 Antibiotics) titanium Allergy Hives Verified 05/10/18 13:36 All Systems Review: The remainder of the systems were reviewed and are negative - Constitutional Constitutional: fatigue - Cardiovascular Cardiovascular: as per HPI - Gastrointestinal Gastrointestinal: coffee ground emesis, hematemesis, melena Physical Examination Vital Signs Temperature 98.0 F 05/09/18 19:24 Pulse Rate 73 05/09/18 19:24 Respiratory Rate 24 05/09/18 19:24 Blood Pressure 104/47 05/09/18 19:24 O2 Sat by Pulse Oximetry 100 05/09/18 19:24 Temperature 97.7 F 05/12/18 11:00 Pulse Rate 88 05/12/18 11:00 Respiratory Rate 20 05/12/18 11:00 Blood Pressure 148/66 05/12/18 11:00 O2 Sat by Pulse Oximetry 97 05/12/18 11:00 Oxygen Delivery Oxygen Delivery Room Air General: Conversant, Other (Mild conversational dyspnea noted. ) HEENT: Atraumatic, Normocephaly, Mucus Membranes Moist Neck: No JVD, Normal carotid pulses Cardiac: Reg Rate and Rhythm, Normal S1 and S2, No Murmur Lungs: Other (Lung sounds diminshed throughout. ) Neuro: Alert and responsive, No focal deficits noted Abdomen: Soft, Non-Tender Skin: No rashes noted on visualized skin Musculoskeletal: No Chest Wall Tenderness Extremities: No Clubbing, No Cyanosis, No Edema, Normal Pulses Results 05/12/18 00:19 05/12/18 00:19 Lab Results Impressions Chest X-Ray 05/11/18 17:39 IMPRESSION: Patchy perihilar opacities, which could represent pulmonary edema versus developing infection. A small right pleural effusion is suspected. D/ / Patel Moore MD / Patel Moore MD Interpreting Provider: Patel Moore MD X-Ray 05/11/18 17:42 IMPRESSION: Nonspecific bowel gas pattern. Evaluation for free air is limited by supine positioning. D/ / Patel Moore MD / Patel Moore MD Interpreting Provider: Patel Moore MD Active Medications Albuterol/Ipratropium (Duoneb) 3 ml IH H2FRDIG PRN PRN Reason: Shortness Of Breath/Wheezing Stop: 11/11/18 10:36 Ceftriaxone Sodium 2,000 mg/ (Sodium Chloride) 100 mls @ 200 mls/hr IVPB Q24H LEEANNA Stop: 11/11/18 08:01 Last Admin: 05/12/18 11:11 Dose: 200 mls/hr Naloxone HCl (Narcan) 0.4 mg IVP Q2MIN PRN PRN Reason: SEE COMMENTS Stop: 11/08/18 23:41 Ondansetron HCl (Zofran) 4 mg IVP Q6HR PRN; Protocol PRN Reason: Nausea Stop: 11/09/18 01:03 Pantoprazole Sodium (Protonix) 40 mg IVP Q12HR LEEANNA Stop: 11/10/18 18:01 Last Admin: 05/12/18 05:30 Dose: 40 mg Laboratory Tests 05/09/18 05/09/18 05/10/18 19:28 19:28 04:07 Hgb 10.1 L 7.3 L D Creatinine 1.98 H Troponin I 05/11/18 05/12/18 05/12/18 17:51 00:19 00:19 Hgb 9.7 L Creatinine 0.79 Troponin I 0.06 H* 05/12/18 05/12/18 00:19 05:53 Hgb Creatinine Troponin I 0.10 H* 0.08 H* - Imaging and Cardiology Chest Xray: report reviewed Echo: report reviewed - EKG Interpretation EKG results cardiology: personally reviewed (ECG with paced rhythm, HR 93.), other (Telemetry reviewed with average HR previous 12 hours noted to be 91, paced rhythm. PVCs noted.) Consult Discharge Plan - Plan Referrals: NONE,PCP [Primary Care Provider] -
[2018-05-12 20:30] LABS: BUN/Creatinine Ratio 14 (6-26); Blood Urea Nitrogen 11 mg/dL (8-23); Calcium 8.4 mg/dL (8.6-10.3); Carbon Dioxide 21 mEq/L (23-29); Chloride 114 mEq/L (98-107); Glucose 126 mg/dL (70-105); Magnesium 1.6 mg/dL (1.6-2.6); Osmolality,Calculated 295 (280-300); Potassium 3.6 mEq/L (3.5-5.1); Sodium 142 mEq/L (136-145); eGFR For Non-African Americans > 60 (> 60)
[2018-05-13 05:44] LABS: Basophils % 0.3 %; Eosinophils # 0.2 K/mcL (0.0-0.6); Eosinophils % 1.6 %; Hemoglobin 8.7 g/dL (11.5-15.4); Immature Granulocytes % 0.5 % (0-4); Lymphocytes # 0.5 K/mcL (0.6-4.6); Lymphocytes % 3.6 %; Mean Corpuscular HGB Conc 31.1 g/dL (31.6-35.5); Mean Corpuscular Hemoglobin 30.5 pg (28.0-33.3); Mean Corpuscular Volume 98.2 fL (83.0-100.0); Mean Platelet Volume 12.4 fL (9.4-12.4); Monocytes # 1.4 K/mcL (0.0-1.3); Monocytes % 10.3 %; Neutrophils # 11.1 K/mcL (1.6-8.9); Platelet Count 197 K/mcL (140-400); Red Blood Count 2.85 M/mcL (3.82-4.97); Red Cell Distribution Width 16.1 % (11.5-14.5); Segmented Neutrophils % 83.7 %
[2018-05-13] MEDS: Pantoprazole 40 MG VIAL IVP SCH ×2 (05:55→17:37)
[2018-05-13 06:07] LABS: BUN/Creatinine Ratio 16 (6-26); Blood Urea Nitrogen 11 mg/dL (8-23); Calcium 8.3 mg/dL (8.6-10.3); Carbon Dioxide 21 mEq/L (23-29); Chloride 114 mEq/L (98-107); Glucose 124 mg/dL (70-105); Magnesium 1.6 mg/dL (1.6-2.6); Osmolality,Calculated 293 (280-300); Potassium 4.3 mEq/L (3.5-5.1); Sodium 141 mEq/L (136-145); eGFR For Non-African Americans > 60 (> 60)
[2018-05-13] MEDS: cefTRIAXone 2,000 MG in 0.9 % Sodium Chloride Mini Bag 100 ML IVPB SCH (09:39)
--- NOTE | 2018-05-13 09:48 | Internal Med Progress Note ---
<Kriss Herndon - Last Filed: 05/13/18 12:08> Hospitalist Progress Note - Encounter Date of Encounter: 05/13/18 - Exam Vitals: Temp Pulse Resp BP Pulse Ox 98.6 F 92 18 145/70 95 05/13/18 12:00 05/13/18 12:00 05/13/18 12:00 05/13/18 12:00 05/13/18 12:00 - Time Spent with Patient Total time spent is greater than 50% in coordination of care (as documented) at patient's floor/unit and/or counseling patient: Internal Medicine: Result - Labs CBC & Chem 7: 05/13/18 05:06 05/13/18 05:06 Labs: Short CBC 05/13/18 Range/Units 05:06 WBC 13.2 H (4.3-11.1) K/mcL Hgb 8.7 L (11.5-15.4) g/dL Hct 28.0 L (35.3-44.9) % Plt Count 197 (140-400) K/mcL Neutrophils # 11.1 H (1.6-8.9) K/mcL BMP 05/12/18 05/13/18 19:41 05:06 Sodium 142 141 Potassium 3.6 4.3 Chloride 114 H 114 H Carbon Dioxide 21 L 21 L BUN 11 11 Creatinine 0.77 0.70 Glucose 126 H 124 H Calcium 8.4 L 8.3 L - ABG Interpretation ABG results: PT/INR, D-dimer PT 13.9 Seconds (9.4-12.1) H 05/12/18 00:19 Consult Discharge Plan - Plan Referrals: NONE,PCP [Primary Care Provider] - - Attending Attestation The history, physical exam, and medical decision making was performed by medical david Escalante either while I was physically present and actively involved or I personally re-performed the exam and medical decision making. I have verified the accuracy of the medical student's documentation with regards to the history, physical exam findings, and medical decision making. Ms Crabtree is here with coffee ground emesis and melena. GI is following,and she had egd, and cscope is pending Givn fluid resuscitation she is now in acute on chronic diastolic chf exacerbation awake, overall feelingbetter, abd pain improving, no n/v. denies overt bleeding. no cp, palpitations, presyncope. sob improving with diuretic. Denies sob currently on o2 nc, no cough, wheezing, fevers or chills. gen- alert, awake,appears stated age eyes- pupils equal round, no conjunctival pallor cv- reg rate and rhythm, normal s1,s2, no murmurs appreciated, no le edema, no jvd lungs- crackles faint, bl bases, no rhonchi or wheezing,mild resp distress with rapid shallow breathing with prolonged discussion on o2 nc, no accessory muscle use abd- soft, + tender BL LQs, no guarding, no rigidity, mildly distended, + bs neuro- AAOxperson, place GIB with melena and hemetemesis- egd result d/w Dr Greer, ??AVM on report though he believes study was normal and that cscope will likely yield source of bleeding, healed ulcer, gi following, cscope today as could not be preformed yesterday, IV PPI q 12h, npo Acute Blood loss anemia 2/2 gib Hemodynamically stable - serial h/hs, hgb down to 8.7 this morning, transfuse hgb <8 or active bleeding, scds only Leukocytosis resolved without abx initially then returned 05/12, suspect 2/2 uti Leukocytosis down trending, afebrile - ct a/p no acute findings -CXR with some patchy opacities vasc congestion vs developing infection--at this time examines and symptoms of fluid overload and not pna, will cont to monitor -UA + infection - rocephin, ucx pending Afib hx, currently NSR vs V paced Bioprosthetic heart valve Hx - holding warfarin in setting of GIB -cards consulted and following-agree cont to hold ac, does not require asa any f urther, would resume ac when/if ok to do so by gi CAD Hx with chest pain episode and trop elevation acute on chronic Diastolic CHF -trop peak 0.10 suspected demand ischemia- no further work up warranted -cont iv lasix (home dose had been held while fluid resuscitating) and uptitrate as needed, cxr in am -cards following -home meds when able to take po minus asa as above Hypokalemia- resolved CKD, stage uk, creat appears near baseline- cont to monitor with diuresis Severe Protein Calorie Malnutrition r/t decreased appetite and intake aeb 8% wt loss x 1 week and obvious fat/muscle loss.- currently npo , nutrition following <Jf Escalante - Last Filed: 05/13/18 15:50> Hospitalist Progress Note - Encounter Date of Encounter: 05/13/18 Time of Encounter: 08:30 - Subjective Interval History: Karyn is a 82 year-old female on hospital day 5 who presented to the ED with an episode of coffee-ground and multiple episodes of dark-colored stool. Patient was evaluated at bed side this morning and admits to coughing, wheezing, occasional abdominal pain she describes as sharp, and slight muscle weakness. She denies fevers, fatigue, chest pain, palpitations, SOB, nausea, vomiting, diarrhea, polyuria, dysuria, blood in the urine, muscle pain, joint pain, numbness, tingling, and paralysis. Patient is NPO and should have a colonoscopy performed today. - Exam Vitals: Temp Pulse Resp BP Pulse Ox 97.9 F 88 20 129/61 97 05/13/18 06:56 05/13/18 06:56 05/13/18 06:56 05/13/18 06:56 05/13/18 06:56 Exam: Gen: A/Ox3. In no acute distress. Neck: soft, supple, trachea midline. No cervical lymphadenopathy. No thyromegaly. CV: 3/6 systolic murmur. RRR, no gallop or rubs auscultated. Resp: crackles auscultated in the bilateral lower lung snow. Symmetric thorax. No wheezes or rhonchi. GI: soft, non-tender, non-distended. BSx4. No hepatomegaly, splenomegaly, or lesions noted. No abdominal pain elicited w/ palpation. Neuro: sensation normal in UE and LE bilaterally. Strength normal in UE and LE bilaterally. Extrem: radial and dorsalis pedis pulses +2 bilaterally. No LE edema. No rashes noted. - Assessment and Plan (1) GI bleed Current Visit: Yes Status: Acute Assessment and Plan: Patient is a 82-year-old female who presented to the ED on 05/09/18 with an episode of coffee-ground emesis and multiple episodes of dark-colored stool. She has a PMHx of CVA, Afib for which she is on coumadin and lovenox for, valvular heart disease, CAD, AK, HTN, hyperlipidemia, GERD, PE, and diverticulitis. In ED, patient received IV fluids which helped her hypotension. She was started on protonix, and received 1 dose of octreotide. An EGD was performed and was normal. Patient is NPO. A colonoscopy should be done today. Patients hemoglobin upon admission was 10.1. On 05/10/18 it dropped to 7.3, which is when the patient was transfused with 1 unit PRBCs. Today, patient's hemoglobin is 8.7. Plan: -Repeat H/H at 3pm -Transfuse 1 unit PRBCs if hemoglobin drops below 8 (2) Leukocytosis Current Visit: Yes Status: Acute Assessment and Plan: Patient was evaluated for signs of infection. CT w/o contrast of abdomen showed diffuse diverticulosis, but no diverticulitis. Lactic acid levels were normal. The leukocytosis returned to normal 05/10/18, but increased to 15.3 on 05/12/18. Is currently at 13.2. UA showed evidence of UTI, with nitrites and leukocyte esterase being positive, and bacteria being present. A moderate amount of blood was also present. Patient was started yesterday on rocephin 2,000mg. Blood culture showed gram (-) rods. Plan: -Continue rocephin -Monitor WBC count (3) Afib Current Visit: No Status: Chronic Assessment and Plan: On Coumadin, which is being bridged with Warfarin Patient has NSR INR = 1.2 yesterday Patient has a pacemaker and a biprosthetic valve. Patient has been on lopressor for rate control. Cardiology consulted and is following. They agree to hold coumadin - patient can continue coumadin when GI approves. Patient does not need ASA anymore. Plan: -Continue to hold coumadin, lovenox for now for the GI bleed. Patient should be getting a colonoscopy today. -Using SCDs for DVT prophylaxis -Resume beta temo after she is not NPO anymore (4) CAD (coronary artery disease) Current Visit: No Status: Chronic Assessment and Plan: CAD s/p AK Patient has acute on chronic diastolic HF. Patient had chest pain for the past 2 days, with an elevated troponin level of 0.10 on 05/11/18. Believed to be demand ischemia. Patient denies chest pain today. Patient on duoneb for her SOB, and was given one xanax for her anxiety when she had this flare-up. Plan: -IV lasix 40mg daily -Hold home medications -Cardiology is following (5) CHF (congestive heart failure) Current Visit: No Status: Chronic Assessment and Plan: Patient has acute on chronic diastolic HF. Cardiology D/C the echo, said it wasn't necessary. Plan: -CXR tomorrow morning at 4am -Hold home meds for now (6) CKD (chronic kidney disease) Current Visit: Yes Status: Acute Assessment and Plan: Baseline GFR is 37-42. Current level is >60. On admission, creatinine was 1.98. Has since decreased to 0.70 from the maintenance IVF. Baseline is 1.3-1.4. Potassium was low yesterday at 3.0. Is now at 4.3. Magnesium is at 1.6 and is normal. Plan: -Continue to monitor creatinine levels w/ diuresis -Avoid nephrotoxic agents -Renal dose medications (7) HLD (hyperlipidemia) Current Visit: No Status: Chronic Assessment and Plan: Plan: -Currently NPO. Holding lipitor (8) DVT prophylaxis Current Visit: Yes Status: Acute Assessment and Plan: Plan: -Use SCD for DVT prophylaxis - Time Spent with Patient Total time spent is greater than 50% in coordination of care (as documented) at patient's floor/unit and/or counseling patient: Internal Medicine: Result - Labs CBC & Chem 7: 05/13/18 05:06 05/13/18 05:06 Labs: Short CBC 05/13/18 Range/Units 05:06 WBC 13.2 H (4.3-11.1) K/mcL Hgb 8.7 L (11.5-15.4) g/dL Hct 28.0 L (35.3-44.9) % Plt Count 197 (140-400) K/mcL Neutrophils # 11.1 H (1.6-8.9) K/mcL BMP 05/12/18 05/13/18 19:41 05:06 Sodium 142 141 Potassium 3.6 4.3 Chloride 114 H 114 H Carbon Dioxide 21 L 21 L BUN 11 11 Creatinine 0.77 0.70 Glucose 126 H 124 H Calcium 8.4 L 8.3 L - ABG Interpretation ABG results: PT/INR, D-dimer PT 13.9 Seconds (9.4-12.1) H 05/12/18 00:19 <Jf Escalante W - Last Filed: 05/13/18 15:50> (1) GI bleed Qualifiers: GI bleed type/associated pathology: unspecified gastrointestinal hemorrhage type Qualified Code(s): K92.2 - Gastrointestinal hemorrhage, unspecified (2) Leukocytosis Qualifiers: Leukocytosis type: unspecified Qualified Code(s): D72.829 - Elevated white blood cell count, unspecified (3) Afib Qualifiers: Atrial fibrillation type: unspecified Qualified Code(s): I48.91 - Unspecified atrial fibrillation (4) CAD (coronary artery disease) Qualifiers: Coronary Disease-Associated Artery/Lesion type: [place] artery [place] vs. transplanted heart: [place] heart Associated angina: without angina Qualified Code(s): I25.10 - Atherosclerotic heart disease of [place] coronary artery without angina pectoris (5) CHF (congestive heart failure) Qualifiers: Heart failure type: diastolic Heart failure chronicity: chronic Qualified Code(s): I50.32 - Chronic diastolic (congestive) heart failure (6) CKD (chronic kidney disease) Qualifiers: Chronic kidney disease stage: stage 3 (moderate) Qualified Code(s): N18.3 - Chronic kidney disease, stage 3 (moderate) (7) HLD (hyperlipidemia) Qualifiers: Hyperlipidemia type: unspecified Qualified Code(s): E78.5 - Hyperlipidemia, unspecified
[2018-05-13] MEDS ORDERED: Propofol 500 MG/50 ML INFUS..BTL ONE (14:56)
[2018-05-13] MEDS ORDERED: Simethicone 40 MG/0.6 ML MLS IR ONE (15:04)
[2018-05-13] MEDS: Furosemide 40 MG/4 ML VIAL IVP SCH (16:21)
[2018-05-13 16:35] LABS: Hematocrit 29.6 % (35.3-44.9); Hemoglobin 9.1 g/dL (11.5-15.4)
[2018-05-13] MEDS ORDERED: ALPRAZolam 0.25 MG TABLET PO ONE (21:40)
[2018-05-13] MEDS: metroNIDAZOLE 500 MG TABLET PO SCH (21:53)
[2018-05-14 04:41] LABS: BUN/Creatinine Ratio 15 (6-26); Blood Urea Nitrogen 13 mg/dL (8-23); Calcium 7.9 mg/dL (8.6-10.3); Carbon Dioxide 22 mEq/L (23-29); Chloride 112 mEq/L (98-107); Glucose 107 mg/dL (70-105); Osmolality,Calculated 293 (280-300); Potassium 3.3 mEq/L (3.5-5.1); Sodium 141 mEq/L (136-145); eGFR For Non-African Americans > 60 (> 60)
[2018-05-14] MEDS ORDERED: Potassium Chloride 40 MEQ, Lidocaine 1% 2 ML in D5% in Water 500 ML IVPB ONE (05:15)
[2018-05-14] MEDS: Pantoprazole 40 MG VIAL IVP SCH ×2 (05:56→17:58)
[2018-05-14 05:58] LABS: Hemoglobin 8.4 g/dL (11.5-15.4); Mean Corpuscular HGB Conc 31.1 g/dL (31.6-35.5); Mean Corpuscular Hemoglobin 30.8 pg (28.0-33.3); Mean Corpuscular Volume 98.9 fL (83.0-100.0); Mean Platelet Volume 12.5 fL (9.4-12.4); Red Blood Count 2.73 M/mcL (3.82-4.97); Red Cell Distribution Width 15.9 % (11.5-14.5)
[2018-05-14 06:28] LABS: Mean Platelet Volume 11.7 fL (9.4-12.4)
[2018-05-14] MEDS ORDERED: cefTRIAXone 1,000 MG in Water for inj. (sterile) 20 ML 10 ML IVP SCH (09:00)
[2018-05-14] MEDS: metroNIDAZOLE 500 MG TABLET PO SCH ×2 (09:45→19:58)
[2018-05-14] MEDS: Furosemide 40 MG/4 ML VIAL IVP SCH (09:45)
--- NOTE | 2018-05-14 14:44 | Internal Med Progress Note ---
<Kriss Herndon - Last Filed: 05/14/18 16:50> Hospitalist Progress Note - Encounter Date of Encounter: 05/14/18 - Exam Vitals: Temp Pulse Resp BP Pulse Ox 98.6 F 75 15 104/88 95 05/14/18 14:00 05/14/18 14:00 05/14/18 14:00 05/14/18 14:00 05/14/18 14:00 - Time Spent with Patient Total time spent is greater than 50% in coordination of care (as documented) at patient's floor/unit and/or counseling patient: Internal Medicine: Result - Labs CBC & Chem 7: 05/14/18 05:26 05/14/18 03:45 Labs: Short CBC 05/14/18 Range/Units 05:26 WBC 10.7 (4.3-11.1) K/mcL Hgb 8.4 L (11.5-15.4) g/dL Hct 27.0 L (35.3-44.9) % Plt Count TNP BMP 05/14/18 03:45 Sodium 141 Potassium 3.3 L Chloride 112 H Carbon Dioxide 22 L BUN 13 Creatinine 0.85 Glucose 107 H Calcium 7.9 L - ABG Interpretation ABG results: PT/INR, D-dimer PT 13.9 Seconds (9.4-12.1) H 05/12/18 00:19 - Impressions Impressions Chest X-Ray 05/14/18 08:28 IMPRESSION: Perihilar opacities are mildly decreased from the prior exam, and could represent improving pulmonary edema or infection. Small left pleural effusion has resolved. D/ / Patel Moore MD / Patel Moore MD Interpreting Provider: Patel Moroe MD Consult Discharge Plan - Plan Additional Instructions: NO MRI'S FOR 30-60 DAYS BECAUSE WE HAD TO CLIP A POLYP DURING YOUR COLONOSCOPY. Referrals: NONE,PCP [Primary Care Provider] - - Attending Attestation I examined this patient and my medical decision-making was reviewed with the Res ident Physician Dr Reis. I agree with the documented findings, disposition and treatment plan as described except to the extent set forth below. Ms Crabtree is here with coffee ground emesis and melena. Foudn to have colitis Given fluid resuscitation she is now in acute on chronic diastolic chf exacerbation awake, in chair, overall cont to improve slowly. no abd pain today and murray erating diet. denies brbpr, melena, n/v. cont sob wiht exertion, remian son o2 nc. denies cough, sputum or wheezing. no fevers or chills. no cp or palpitations. gen- alert, awake,appears stated age eyes- pupils equal round, no conjunctival pallor cv- reg rate and rhythm, normal s1,s2, no murmurs appreciated, no le edema, no jvd lungs- crackles faint, bl bases, no rhonchi or wheezing,normal resp effort on o2 nc abd- soft, non tender no guarding, no rigidity, non distended, + bs neuro- AAOxperson, place GIB with melena and hemetemesis- egd result d/w Dr Greer, ??AVM on report though he believes study was normal and that cscope will likely yield source of bleeding, healed ulcer, cscope with colitis -diet advanced as per gi, cipro + flagyl for 7d total Acute Blood loss anemia 2/2 gib Hemodynamically stable - cont to monitor hgb, not yet stabilized, transfuse hgb <8 Leukocytosis resolved without abx initially then returned 05/12, suspect 2/2 uti Leukocytosis 05/14 no resolved - ct a/p no acute findings -CXR with some patchy opacities vasc congestion vs developing infection--at this time examines and symptoms of fluid overload and not pna,repeat CXR confirms improving with diuresis Ecoli UTI- pansensitive- cont cipro Afib hx, currently NSR vs V paced Bioprosthetic heart valve Hx - holding warfarin in setting of GIB -cards consulted and following-agree cont to hold ac, does not require asa any further, would resume ac when/if ok to do so by gi CAD Hx with chest pain episode and trop elevation acute on chronic Diastolic CHF -trop peak 0.10 suspected demand ischemia- no further work up warranted -cont iv lasix (home dose had been held while fluid resuscitating) -cards followed -home meds when able to take po minus asa as above Hypokalemia-repletion CKD, stage uk, creat appears near baseline- cont to monitor with diuresis <Srinivasan Reis - Last Filed: 05/14/18 18:21> Hospitalist Progress Note - Encounter Date of Encounter: 05/14/18 Time of Encounter: 10:00 - Subjective Interval History: Patient today is conversant and says she feels like she is improving. She denies fevers, chest discomfort, shortness of breath, or abdominal pain currently. She has started eating per her diet and denies n/v. No bloody stool. - Exam Vitals: Temp Pulse Resp BP Pulse Ox 97.5 F L 88 15 106/58 96 05/14/18 10:00 05/14/18 10:00 05/14/18 10:00 05/14/18 10:00 05/14/18 10:00 Exam: Gen: A/Ox3. In no acute distress. Neck: soft, supple, trachea midline. No cervical lymphadenopathy. No thyromegaly. CV: Harsh systolic murmur 3 out of 6, known. RRR, no gallop or rubs auscultated. Resp: crackles auscultated in the bilateral lower lung snow. Symmetric thorax. No wheezes or rhonchi. GI: soft, non-tender, non-distended. BSx4. No hepatomegaly, splenomegaly, or lesions noted. No abdominal pain elicited w/ palpation. Neuro: sensation normal in UE and LE bilaterally. Strength normal in UE and LE bilaterally. Extrem: radial and dorsalis pedis pulses +2 bilaterally. No LE edema. No rashes noted; chronic ecchymosis (hx coumadin) - Assessment and Plan (1) GI bleed Current Visit: Yes Status: Acute Assessment and Plan: Presented with melena and coffee-ground emesis. AVM, non-bleeding on EGD, cscope showing colitis (on cipro/flagyl to be for 7d) Hgb: 8.4 (9.1); S/p 1U transfusion 05/10 7.4 -> 9.7 -monitor AM labs; will transfuse if <8.0 Diet advanced per GI recommendations (2) Colitis Current Visit: Yes Status: Acute Assessment and Plan: Status post colonoscopy showing colitis -Started on Cipro and Flagyl, will be for 7d (3) Acute blood loss anemia Current Visit: Yes Status: Acute Assessment and Plan: MDM as above under GI bleed (4) Afib Current Visit: No Status: Chronic Assessment and Plan: NSR versus ventricular pacing, history of bioprosthetic heart valve -holding coumadin -continuing home bb (5) CAD (coronary artery disease) Current Visit: No Status: Chronic Assessment and Plan: adynamic trop, peak of 0.10; likely type 2/demand -continuing lasix 40mg iv daily (6) CKD (chronic kidney disease) Current Visit: Yes Status: Acute Assessment and Plan: chronic, no maxi; toleratig lasix (7) Leukocytosis Current Visit: Yes Status: Acute Assessment and Plan: Now 10.7 (13.2, 15.3) in setting of colitis and CXR with patchy opacities vs vasc congestion, fluids stopped day of cxr, cipro/flagyl started 05/13, patient was diuresed/continues to be, repeat cxr shows improvement, no leukocytosis currently, now has diet, no fluids DVT Prophylaxis: On EPCDs - Time Spent with Patient Total time spent is greater than 50% in coordination of care (as documented) at patient's floor/unit and/or counseling patient: Internal Medicine: Result - Labs CBC & Chem 7: 05/14/18 05:26 05/14/18 03:45 Labs: Short CBC 05/13/18 05/14/18 Range/Units 16:24 05:26 WBC 10.7 (4.3-11.1) K/mcL Hgb 9.1 L 8.4 L (11.5-15.4) g/dL Hct 29.6 L 27.0 L (35.3-44.9) % Plt Count TNP BMP 05/14/18 03:45 Sodium 141 Potassium 3.3 L Chloride 112 H Carbon Dioxide 22 L BUN 13 Creatinine 0.85 Glucose 107 H Calcium 7.9 L - ABG Interpretation ABG results: PT/INR, D-dimer PT 13.9 Seconds (9.4-12.1) H 05/12/18 00:19 - Impressions Impressions Chest X-Ray 05/14/18 08:28 IMPRESSION: Perihilar opacities are mildly decreased from the prior exam, and could represent improving pulmonary edema or infection. Small left pleural effusion has resolved. D/ / Patel Moore MD / Patel Moore MD Interpreting Provider: Patel Moore MD <Srinivasan Reis - Last Filed: 05/14/18 18:21> (1) GI bleed Qualifiers: GI bleed type/associated pathology: unspecified gastrointestinal hemorrhage type Qualified Code(s): K92.2 - Gastrointestinal hemorrhage, unspecified (4) Afib Qualifiers: Atrial fibrillation type: unspecified Qualified Code(s): I48.91 - Unspecified atrial fibrillation (5) CAD (coronary artery disease) Qualifiers: Coronary Disease-Associated Artery/Lesion type: [place] artery [place] vs. transplanted heart: [place] heart Associated angina: without angina Qualified Code(s): I25.10 - Atherosclerotic heart disease of [place] coronary artery without angina pectoris (6) CKD (chronic kidney disease) Qualifiers: Chronic kidney disease stage: stage 3 (moderate) Qualified Code(s): N18.3 - Chronic kidney disease, stage 3 (moderate) (7) Leukocytosis Qualifiers: Leukocytosis type: unspecified Qualified Code(s): D72.829 - Elevated white blood cell count, unspecified
[2018-05-15 05:11] LABS: Hematocrit 26.1 % (35.3-44.9); Hemoglobin 8.4 g/dL (11.5-15.4); Mean Corpuscular HGB Conc 32.2 g/dL (31.6-35.5); Mean Corpuscular Hemoglobin 31.2 pg (28.0-33.3); Mean Platelet Volume 12.7 fL (9.4-12.4); Platelet Count 206 K/mcL (140-400); Red Blood Count 2.69 M/mcL (3.82-4.97); Red Cell Distribution Width 15.7 % (11.5-14.5)
[2018-05-15 05:31] LABS: BUN/Creatinine Ratio 20 (6-26); Blood Urea Nitrogen 19 mg/dL (8-23); Carbon Dioxide 23 mEq/L (23-29); Chloride 109 mEq/L (98-107); Glucose 111 mg/dL (70-105); Osmolality,Calculated 289 (280-300); Potassium 3.8 mEq/L (3.5-5.1); Sodium 138 mEq/L (136-145); eGFR For Non-African Americans 56 (> 60)
[2018-05-15] MEDS: Pantoprazole 40 MG VIAL IVP SCH ×2 (05:46→17:48)
--- NOTE | 2018-05-15 08:01 | Internal Med Progress Note ---
Hospitalist Progress Note - Encounter Date of Encounter: 05/15/18 Time of Encounter: 10:00 - Subjective Interval History: awake in chair, cont to feel better daily, no abd pain, no melena or emesis. denies fevers or chills. no pain in bladder or back. denies lightheadedness or dizziness with low hgb while resting. remains generally weak. - Exam Vitals: Temp Pulse Resp BP Pulse Ox 98.4 F 77 16 119/57 97 05/15/18 07:52 05/15/18 07:52 05/15/18 07:52 05/15/18 07:52 05/15/18 07:52 Exam: gen- alert, awake,appears stated age eyes- pupils equal round, no conjunctival pallor cv- reg rate and rhythm, normal s1,s2, no murmurs appreciated, no le edema, no jvd lungs- improved aeration base, no crackles appreciated, no rhonchi or wheezing,normal resp effort on o2 nc abd- soft, non tender no guarding, no rigidity, non distended, + bs neuro- AAOxperson, place - Assessment and Plan (1) UTI (urinary tract infection) Current Visit: Yes Status: Acute Assessment and Plan: Ecoli UTI- pansensitive- cont cipro (2) Acute blood loss anemia Current Visit: Yes Status: Acute Assessment and Plan: Acute Blood loss anemia 2/2 gib Hemodynamically stable, hgb remains 8.4 over last 24 hrs - cont to monitor hgb, transfuse hgb <8 -scds only (3) CKD (chronic kidney disease) Current Visit: Yes Status: Acute Assessment and Plan: KD, creat appears near baseline- cont to monitor with diuresis (4) Colitis Current Visit: Yes Status: Acute Assessment and Plan: Status post colonoscopy showing colitis -Started on Cipro and Flagyl, will be for 7d total (5) GI bleed Current Visit: Yes Status: Resolved Assessment and Plan: GIB with melena and hemetemesis- egd result d/w Dr Greer, ??AVM on report though he believes study was essentially normal and that cscope would yield source of bleeding, cscope with colitis -diet advanced as per gi, cipro + flagyl for 7d total (6) Leukocytosis Current Visit: Yes Status: Acute Assessment and Plan: Leukocytosis resolved without abx initially then returned 05/12, suspect 2/2 uti Leukocytosis 05/14 resolved, suspect UTI + colitis asx source - ct a/p no acute findings -CXR with some patchy opacities vasc congestion vs developing infection--she e xamines fluid overload and not pna,repeat CXR confirmed improving with diuresis -treating UTI and colitis with abx as above (7) Hypokalemia Current Visit: No Status: Resolved Assessment and Plan: resolved with repletion, cont to monitor (8) Afib Current Visit: No Status: Chronic Assessment and Plan: Afib hx, currently NSR vs V paced Bioprosthetic heart valve Hx - holding warfarin in setting of GIB -cards consulted and following-agree cont to hold ac, does not require asa any further, would resume ac when/if ok to do so by gi -likely will be held on dc and resumed outpt when hgb has improved and likely with gi follow up/pcp fu (9) CAD (coronary artery disease) Current Visit: No Status: Chronic Assessment and Plan: CAD Hx with chest pain episode and trop elevation, no further episode acute on chronic Diastolic CHF -trop peak 0.10 suspected demand ischemia- no further work up warranted -cont iv lasix, wean o2, BB, holding asa, cont statin, and captoril as bp permits -cards followed, outpt fu (10) CHF (congestive heart failure) Current Visit: No Status: Acute Assessment and Plan: acute on chronic Diastolic CHF -cont iv lasix, wean o2, BB, holding asa, cont statin, and captoril as bp permits -cards followed DVT Prophylaxis: On scds - Time Spent with Patient Total time spent is greater than 50% in coordination of care (as documented) at patient's floor/unit and/or counseling patient: 25 - 35 minutes Plan of Care Discussed with: patient Internal Medicine: Result - Labs CBC & Chem 7: 05/15/18 04:31 05/15/18 04:31 Labs: Short CBC 05/15/18 Range/Units 04:31 WBC 10.3 (4.3-11.1) K/mcL Hgb 8.4 L (11.5-15.4) g/dL Hct 26.1 L (35.3-44.9) % Plt Count 206 (140-400) K/mcL BMP 05/15/18 04:31 Sodium 138 Potassium 3.8 Chloride 109 H Carbon Dioxide 23 BUN 19 Creatinine 0.95 Glucose 111 H Calcium 8.0 L - ABG Interpretation ABG results: PT/INR, D-dimer PT 13.9 Seconds (9.4-12.1) H 05/12/18 00:19 - Impressions Impressions Chest X-Ray 05/14/18 08:28 IMPRESSION: Perihilar opacities are mildly decreased from the prior exam, and could represent improving pulmonary edema or infection. Small left pleural effusion has resolved. D/ / Patel Moore MD / Patel Moore MD Interpreting Provider: Patel Moore MD Consult Discharge Plan - Plan Additional Instructions: NO MRI'S FOR 30-60 DAYS BECAUSE WE HAD TO CLIP A POLYP DURING YOUR COLONOSCOPY. Referrals: NONE,PCP [Primary Care Provider] - (1) UTI (urinary tract infection) Qualifiers: Urinary tract infection type: acute cystitis Hematuria presence: with hematuria Qualified Code(s): N30.01 - Acute cystitis with hematuria (3) CKD (chronic kidney disease) Qualifiers: Chronic kidney disease stage: stage 3 (moderate) Qualified Code(s): N18.3 - Chronic kidney disease, stage 3 (moderate) (5) GI bleed Qualifiers: GI bleed type/associated pathology: unspecified gastrointestinal hemorrhage type Qualified Code(s): K92.2 - Gastrointestinal hemorrhage, unspecified (6) Leukocytosis Qualifiers: Leukocytosis type: unspecified Qualified Code(s): D72.829 - Elevated white blood cell count, unspecified (8) Afib Qualifiers: Atrial fibrillation type: unspecified Qualified Code(s): I48.91 - Unspecified atrial fibrillation (9) CAD (coronary artery disease) Qualifiers: Coronary Disease-Associated Artery/Lesion type: [place] artery [place] vs. transplanted heart: [place] heart Associated angina: without angina Qualified Code(s): I25.10 - Atherosclerotic heart disease of [place] coronary artery without angina pectoris (10) CHF (congestive heart failure) Qualifiers: Heart failure type: diastolic Heart failure chronicity: chronic Qualified Code(s): I50.32 - Chronic diastolic (congestive) heart failure
[2018-05-15] MEDS: metroNIDAZOLE 500 MG TABLET PO SCH ×2 (08:15→19:49)
[2018-05-15] MEDS: Furosemide 40 MG/4 ML VIAL IVP SCH (08:15)
[2018-05-16] MEDS: Pantoprazole 40 MG VIAL IVP SCH (04:57)
--- NOTE | 2018-05-16 08:51 | Internal Med Progress Note ---
Hospitalist Progress Note - Encounter Date of Encounter: 05/16/18 Time of Encounter: 09:30 - Subjective Interval History: awake, pleasant, feeling well and no complaints. denies sob, wheezing, cough, cp, palpitations, abd pain nausea or emesis. denies LUE pain, wrist, joint or shoulder pain - Exam Vitals: Temp Pulse Resp BP Pulse Ox 98.3 F 71 16 120/62 96 05/16/18 06:54 05/16/18 06:54 05/16/18 06:54 05/16/18 06:54 05/16/18 06:54 Exam: gen- alert, awake,appears stated age eyes- pupils equal round, no conjunctival pallor cv- reg rate and rhythm, normal s1,s2, no murmurs appreciated, no le edema, no jvd lungs- normal resp effort on o2 nc, faint crackles bl bases, no rhonchi or wheezing,normal resp effort on o2 nc abd- soft, non tender no guarding, no rigidity, non distended, + bs neuro- AAOxperson, place - Assessment and Plan (1) UTI (urinary tract infection) Current Visit: Yes Status: Acute Assessment and Plan: Ecoli UTI- pansensitive- cont cipro (2) Acute blood loss anemia Current Visit: Yes Status: Acute Assessment and Plan: Acute Blood loss anemia 2/2 gib Hemodynamically stable, hgb uptrending, now in 9s - cont to monitor hgb, transfuse hgb <8 -scds only (3) CKD (chronic kidney disease) Current Visit: Yes Status: Acute Assessment and Plan: KD, creat appears near baseline- cont to monitor with diuresis (4) Colitis Current Visit: Yes Status: Acute Assessment and Plan: Status post colonoscopy showing colitis -Started on Cipro and Flagyl, will be for 7d total (5) GI bleed Current Visit: Yes Status: Resolved Assessment and Plan: GIB with melena and hemetemesis- egd result d/w Dr Greer, ??AVM on report though he believes study was essentially normal and that cscope would yield source of bleeding, cscope with colitis -diet advanced as per gi, cipro + flagyl for 7d total, PPI (6) Leukocytosis Current Visit: Yes Status: Acute Assessment and Plan: Leukocytosis resolved without abx initially then returned 05/12, suspect 2/2 uti Leukocytosis 05/14 resolved, suspect UTI + colitis asx source - ct a/p no acute findings -CXR with some patchy opacities vasc congestion vs developing infection--she examines fluid overload and not pna,repeat CXR confirmed improving with diuresis -treating UTI and colitis with abx as above (7) Afib Current Visit: No Status: Chronic Assessment and Plan: Afib hx, currently NSR vs V paced Bioprosthetic heart valve Hx - holding warfarin in setting of GIB -cards consulted and following-agree cont to hold ac, does not require asa any further, would resume ac when/if ok to do so by gi -likely will be held on dc and resumed outpt when hgb has improved and likely with gi follow up/pcp fu (8) CAD (coronary artery disease) Current Visit: No Status: Chronic Assessment and Plan: CAD Hx with chest pain episode and trop elevation, no further episode acute on chronic Diastolic CHF -trop peak 0.10 suspected demand ischemia- no further work up warranted -cont iv lasix, wean o2, BB, holding asa, cont statin, and captoril as bp permits -cards followed, outpt fu (9) CHF (congestive heart failure) Current Visit: No Status: Acute Assessment and Plan: acute on chronic Diastolic CHF -cont iv lasix, wean o2, BB, holding asa, cont statin, and captoril as bp permits -cards followed -repeat cxr today DVT Prophylaxis: On scds - Time Spent with Patient Total time spent is greater than 50% in coordination of care (as documented) at patient's floor/unit and/or counseling patient: Plan of Care Discussed with: patient Internal Medicine: Result - Labs CBC & Chem 7: 05/16/18 09:08 05/15/18 04:31 - ABG Interpretation ABG results: PT/INR, D-dimer PT 13.9 Seconds (9.4-12.1) H 05/12/18 00:19 Consult Discharge Plan - Plan Additional Instructions: NO MRI'S FOR 30-60 DAYS BECAUSE WE HAD TO CLIP A POLYP DURING YOUR COLONOSCOPY. Referrals: NONE,PCP [Primary Care Provider] - (1) UTI (urinary tract infection) Qualifiers: Urinary tract infection type: acute cystitis Hematuria presence: with hematuria Qualified Code(s): N30.01 - Acute cystitis with hematuria (3) CKD (chronic kidney disease) Qualifiers: Chronic kidney disease stage: stage 3 (moderate) Qualified Code(s): N18.3 - Chronic kidney disease, stage 3 (moderate) (5) GI bleed Qualifiers: GI bleed type/associated pathology: unspecified gastrointestinal hemorrhage type Qualified Code(s): K92.2 - Gastrointestinal hemorrhage, unspecified (6) Leukocytosis Qualifiers: Leukocytosis type: unspecified Qualified Code(s): D72.829 - Elevated white blood cell count, unspecified (7) Afib Qualifiers: Atrial fibrillation type: unspecified Qualified Code(s): I48.91 - Unspecified atrial fibrillation (8) CAD (coronary artery disease) Qualifiers: Coronary Disease-Associated Artery/Lesion type: [place] artery [place] vs. transplanted heart: [place] heart Associated angina: without angina Qualified Code(s): I25.10 - Atherosclerotic heart disease of [place] coronary artery without angina pectoris (9) CHF (congestive heart failure) Qualifiers: Heart failure type: diastolic Heart failure chronicity: chronic Qualified Code(s): I50.32 - Chronic diastolic (congestive) heart failure
[2018-05-16 09:21] LABS: Hematocrit 29.8 % (35.3-44.9); Hemoglobin 9.2 g/dL (11.5-15.4)
[2018-05-16] MEDS: metroNIDAZOLE 500 MG TABLET PO SCH ×2 (09:46→20:08)
[2018-05-16] MEDS: Furosemide 40 MG/4 ML VIAL IVP SCH (09:46)
[2018-05-17 05:26] LABS: Hematocrit 27.8 % (35.3-44.9); Hemoglobin 8.6 g/dL (11.5-15.4)
[2018-05-17 05:41] LABS: Calcium 8.1 mg/dL (8.6-10.3); Magnesium 1.9 mg/dL (1.6-2.6); Potassium 3.7 mEq/L (3.5-5.1)
--- NOTE | 2018-05-17 08:58 | Discharge Summary ---
<Srinivasan Reis - Last Filed: 05/17/18 14:44> - NOTES TO OUTPATIENT PROVIDER Notes to Outpatient Provider: Transferring to [facility]. Hemodynamically stable, no acute bleed, s/p scope showing colitis, on admission held Coumadin (she has hx of valvular disease); 2 more days of cipro and flagyl (colitis; incidental UTI); Important to follow up with GI, Cards, PCP for resumption of anticoagulation. Iron deficient per labs, recommend iron supplementation few weeks post colitis resolution; Repeat CBC 3 days Orders not resulted at time of discharge: Pending orders 05/13/18 15:33 Surgical Pathology [PTH] Routine Date of Encounter: 05/17/18 Time of Encounter: 09:30 - Discharge Diagnosis (1) GI bleed Priority: Primary Status: Resolved Qualifiers: GI bleed type/associated pathology: unspecified gastrointestinal hemorrhage type Qualified Code(s): K92.2 - Gastrointestinal hemorrhage, unspecified (2) Colitis Priority: Secondary Status: Acute (3) Acute blood loss anemia Priority: Secondary Status: Acute (4) Afib Priority: Secondary Status: Chronic Qualifiers: Atrial fibrillation type: unspecified Qualified Code(s): I48.91 - Unspecified atrial fibrillation (5) CAD (coronary artery disease) Priority: Secondary Status: Chronic Qualifiers: Coronary Disease-Associated Artery/Lesion type: [place] artery [place] vs. transplanted heart: [place] heart Associated angina: without angina Qualified Code(s): I25.10 - Atherosclerotic heart disease of [place] coronary artery without angina pectoris (6) CKD (chronic kidney disease) Priority: Secondary Status: Acute Qualifiers: Chronic kidney disease stage: stage 3 (moderate) Qualified Code(s): N18.3 - Chronic kidney disease, stage 3 (moderate) (7) Leukocytosis Priority: Secondary Status: Acute Qualifiers: Leukocytosis type: unspecified Qualified Code(s): D72.829 - Elevated white blood cell count, unspecified Hospital course: Karyn Crabtree is an 82-year-old female who presented to the ED on 05/09/18 with an episode of coffee-ground emesis and multiple episodes of dark-colored stool. She was recently placed in a nursing facility to do rehab after a TIA, which is where she developed these symptoms. She has been on Coumadin for Afib for years now, but recently found out on her prior admission that she had a subtherapeutic INR of 1.1, so she had lovenox added w/ her Coumadin. She has a PMHx of CVA, Afib, has a pacemaker, valvular heart disease, CAD, [place], HTN, hyperlipidemia, GERD, PE, and diverticulitis. In the ED she was also hypotensive, but this improved w/ IVFs. She was also given 1 dose of octreotide. She was placed on a protonix drip, Zofran PRN, NPO status. 05/10 hgb of 7.3; transfused 1 unit PRBC. GI was consulted and performed an EGD on 05/10/18, with the results showing a normal esophagus, AVM w/ no active bleeding, and a scar in the antrum. Anticoagulation held in setting of GI bleed. Patient and family initially afraid of perforation (documented as history of thin walled colon established by [facility] physician.) Risk versus benefit was discussed with patient/family who eventually agreed to undergo procedure colonoscopy, and it was performed on 05/13/2018. Results showed diverticulosis in the sigmoid colon, internal hemorrhoids, and inflammation in the sigmoid colon secondary to colitis, Cipro/flagyl initiated inpatient. Discharge plan: -Patient will be discharged to [facility] SNF today -She had an iron study done today and was low. Her SNF needs to monitor her hemoglobin and potentially supplement iron in the near future -Will need 2L of O2 for home -Continue Lasix 80mg at home, 40mg at night -Repeat CBC in 3 days -Cipro+flagyl to complete 7 days total, currently on day 5 -Her anticoagulation meds were held for her GI bleed, needs to see cardiology and GI outpatient; plan for resumption of anticoagulation per GI recommendation. - Time Spent with Patient Total time spent providing and/or coordinating discharge services: Greater than 30 minutes - Discharge Medications Prescriptions: Ciprofloxacin [Cipro] 500 mg PO BID #4 tablet metroNIDAZOLE [Flagyl] 500 mg PO BID #4 tablet Home Medications: Atorvastatin [Lipitor] 40 mg PO HS 05/03/18 [History] Calcium Citrate 600 mg PO DAILY 05/03/18 [History] Captopril [Capoten] 12.5 mg PO TIDAC 05/03/18 [History] Cyanocobalamin (Vitamin B-12) [Vitamin B12] 1,000 mcg PO BID 05/03/18 [History] Furosemide [Lasix] 40 mg PO QPM 05/03/18 [History] Furosemide [Lasix] 80 mg PO QAM 05/03/18 [History] Garlic 1,000 mg PO DAILY 05/03/18 [History] Metoprolol [Lopressor] 25 mg PO BID 05/03/18 [History] Multivit-Min/Iron/Folic Acid/K [Adults Multivitamin Tablet] 1 tab PO DAILY 05/03/18 [History] Potassium Chloride [K-Tab ER] 10 meq PO DAILY 05/09/18 [History] Ascorbic Acid [Vitamin C] 500 mg PO DAILY 05/10/18 [History] Ciprofloxacin [Cipro] 500 mg PO BID #4 tablet 05/17/18 [Rx] metroNIDAZOLE [Flagyl] 500 mg PO BID #4 tablet 05/17/18 [Rx] Allergies/Adverse Reactions: Allergy/AdvReac Type Severity Reaction Status Date / Time adhesive tape Allergy Rash Verified 05/09/18 19:47 Sulfa (Sulfonamide Allergy Hives Verified 05/10/18 13:36 Antibiotics) titanium Allergy Hives Verified 05/10/18 13:36 Date of admission: 05/10/18 01:29 Primary care physician: PCP NONE Consults: 05/09/18 21:01 Consult to Gastroenterology [CONS] Stat Consulting Provider: Gastroenterology Swathi Reason for Consult: GI bleed Call Completed: Yes 05/10/18 00:08 Consult to Manager Van [CONS] Routine Reason for SW Consult: Follow up ECF 05/12/18 10:03 Consult to Cardiology [CONS] Routine Comment: Consulting Provider: Cardiology Swathi Reason for Consult: hx biprosthetic aortic valve, af.ib. Here for GI bleed, holding coumadin. Last night had mild elevated trops. Apprec recs on Anticoagulation Call Completed: Yes - Constitutional Vitals: Temp Pulse Resp BP Pulse Ox 97.6 F 71 15 123/64 97 05/17/18 08:00 05/17/18 08:00 05/17/18 08:00 05/17/18 08:00 05/17/18 08:00 General appearance: Present: cooperative, A&O X 3, pleasant, no acute distress, answers questions appropriately Exam: . - Head Head exam: Present: atraumatic, normocephalic - Eye Eye exam: Present: conjuntiva pink, sclera anicteric - Neck Neck exam general surgery: Present: supple, trachea midline. Absent: lymphadenopathy - Respiratory Respiratory exam: Present: decreased breath sounds (coarse breath sounds bibasilarly). Absent: accessory muscle use, rales, rhonchi, wheezes - Cardiovascular Cardiovascular exam: Present: +S1, +S2, systolic murmur (3/6 chronic). Absent: diastolic murmur, gallop, JVD, rubs - GI/Abdominal GI/Abdominal exam: Present: normal bowel sounds, soft, no peritoneal signs. Absent: distended, tenderness - Extremities Exam Extremities exam: Present: warm, radial pulses palpable and symmetrical. Absent: calf tenderness, cyanotic, pedal edema - Neurological Exam Neurological exam: Present: CN II-XII intact, oriented X3, no focal deficits. 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 - Diet and Activity Activity: increase activity as tolerated Diet: advance to your usual diet <Kriss Herndon - Last Filed: 05/17/18 15:00> Orders not resulted at time of discharge: Pending orders 05/13/18 15:33 Surgical Pathology [PTH] Routine Date of Encounter: 05/17/18 - Discharge Diagnosis (1) UTI (urinary tract infection) Status: Acute Qualifiers: Urinary tract infection type: acute cystitis Hematuria presence: with hematuria Qualified Code(s): N30.01 - Acute cystitis with hematuria (2) Acute blood loss anemia Status: Acute (3) CKD (chronic kidney disease) Status: Acute Qualifiers: Chronic kidney disease stage: stage 3 (moderate) Qualified Code(s): N18.3 - Chronic kidney disease, stage 3 (moderate) (4) Colitis Status: Acute (5) GI bleed Status: Resolved Qualifiers: GI bleed type/associated pathology: unspecified gastrointestinal hemorrhage type Qualified Code(s): K92.2 - Gastrointestinal hemorrhage, unspecified (6) Leukocytosis Status: Acute Qualifiers: Leukocytosis type: unspecified Qualified Code(s): D72.829 - Elevated white blood cell count, unspecified (7) Afib Status: Chronic Qualifiers: Atrial fibrillation type: unspecified Qualified Code(s): I48.91 - Unspecified atrial fibrillation (8) CAD (coronary artery disease) Status: Chronic Qualifiers: Coronary Disease-Associated Artery/Lesion type: [place] artery [place] vs. transplanted heart: [place] heart Associated angina: without angina Qualified Code(s): I25.10 - Atherosclerotic heart disease of [place] coronary artery without angina pectoris (9) CHF (congestive heart failure) Status: Acute Qualifiers: Heart failure type: diastolic Heart failure chronicity: chronic Qualified Code(s): I50.32 - Chronic diastolic (congestive) heart failure Hospital course: Ms. Crabtree is a 82 year old female - Time Spent with Patient Total time spent providing and/or coordinating discharge services: Greater than 30 minutes (45 min) Date of admission: 05/10/18 01:29 Primary care physician: PCP NONE Consults: 05/09/18 21:01 Consult to Gastroenterology [CONS] Stat Consulting Provider: Gastroenterology Swathi Reason for Consult: GI bleed Call Completed: Yes 05/10/18 00:08 Consult to Manager Van [CONS] Routine Reason for SW Consult: Follow up ECF 05/12/18 10:03 Consult to Cardiology [CONS] Routine Comment: Consulting Provider: Cardiology Swathi Reason for Consult: hx biprosthetic aortic valve, af.ib. Here for GI bleed, holding coumadin. Last night had mild elevated trops. Apprec recs on Anticoagulation Call Completed: Yes - Constitutional Vitals: Temp Pulse Resp BP Pulse Ox 97.6 F 71 15 123/64 97 05/17/18 08:00 05/17/18 08:00 05/17/18 08:00 05/17/18 08:00 05/17/18 08:00 - Attending Attestation I examined this patient and my medical decision-making was reviewed with the Resident Physician Dr Reis. I agree with the documented findings, disposition and treatment plan as described except to the extent set forth below. Ms Crabtree is here with coffee ground emesis and melena. Found to have colitis. Incidentally found to have UTI. Given fluid resuscitation then had acute on chronic diastolic chf exacerbation. She has had anemia throughout admit with hgbs fluctuating between 8.4-9.1 without any evidence of bleeding over 5 days prior to dc. She is clinically greatly improved and is hemodynamically stable. [facility] dc [facility] delayed by that facility not being able to take patients over this past weekend. awake, in bed, pleasant and happy to dc today. denies any abd pain, n/v or melena. eating and drinking without difficulty. no sob, cough, wheezing or orthopnea. answered all dc questions. family was updated last evening (son nivia) of dc today). Pt counseled on signs of bleeding/anemia. gen- alert, awake,appears stated age eyes- pupils equal round, no conjunctival pallor cv- reg rate and rhythm, normal s1,s2, no murmurs appreciated, no le edema, no jvd lungs- diminished in right base, clear left base without crackles, no rhonchi or wheezing, normal resp effort on o2 nc abd- soft, non tender no guarding, no rigidity, non distended, + bs neuro- AAOxperson, place, situation GIB with melena and hemetemesis, resolved- egd result d/w Dr Greer, ??AVM on report though he believes study was essentially normal and that cscope would yield source of bleeding, cscope with colitis -diet advanced as per gi, cipro + flagyl for 7d total, does not require ppi Acute Blood loss anemia 2/2 gib Hemodynamically stable -hgb has been fluctuating daily between 8.4-9.1 x5 days without evidence of bleeding or hemodynamic instability, cbc in 2 days, cont to hold AC at dc until cleared by gi/pcp outpt Leukocytosis resolved without abx initially then returned 05/12, suspect 2/2 uti Leukocytosis 05/14 resolved, suspect UTI + colitis asx source - ct a/p no acute findings -CXR with some patchy opacities vasc congestion vs developing infection--she examines fluid overload and not pna,repeat CXR confirmed improving with diuresis -treating UTI and colitis with abx as noted Ecoli UTI- pansensitive- cont cipro at dc to complete course Afib hx, currently NSR vs V paced this admit Bioprosthetic heart valve Hx - holding warfarin in setting of GIB/anemia -cards consulted and followed-agree cont to hold ac, does not require asa any further, would resume ac when/if ok to do so by gi - will be held on dc and resumed outpt when hgb has improved and with gi follow up/pcp fu given risk of severe bleeding/worsened anemia/cardiac compromise CAD Hx with chest pain episode and trop elevation, no further episode acute on chronic Diastolic CHF -trop peak 0.10 suspected demand ischemia- no further work up warranted -cont home lasix on dc 80 am/40 pm mg, wean o2 at ecf, cont BB, no asa as per cards, cont statin, and captoril may be added back outpt as bp permits -cards followed, outpt fu Mild LUE edema 05/16 and now resolved, may have been positional LUE doppler negative further diagnoses and treatment as noted by resident time spent on dc 45 min
[2018-05-17] MEDS: Furosemide 40 MG/4 ML VIAL IVP SCH (09:41)
[2018-05-17] MEDS: metroNIDAZOLE 500 MG TABLET PO SCH (09:41)
--- NOTE | 2018-05-17 11:52 | Physician Discharge Referral ---
<Srinivasan Reis - Last Filed: 05/17/18 12:34> [facility] Referral Info Transfer To: [facility] Provider in Charge after Transfer: PCP - Diagnosis (1) GI bleed Priority: Primary Status: Resolved (2) Colitis Priority: Secondary Status: Acute (3) Acute blood loss anemia Priority: Secondary Status: Acute (4) Afib Priority: Secondary Status: Chronic (5) CAD (coronary artery disease) Priority: Secondary Status: Chronic (6) CKD (chronic kidney disease) Priority: Secondary Status: Acute (7) Leukocytosis Priority: Secondary Status: Acute - Transfer Medications Prescriptions: Ciprofloxacin [Cipro] 500 mg PO BID #4 tablet metroNIDAZOLE [Flagyl] 500 mg PO BID #4 tablet Home Medications: Atorvastatin [Lipitor] 40 mg PO HS 05/03/18 [History] Calcium Citrate 600 mg PO DAILY 05/03/18 [History] Captopril [Capoten] 12.5 mg PO TIDAC 05/03/18 [History] Cyanocobalamin (Vitamin B-12) [Vitamin B12] 1,000 mcg PO BID 05/03/18 [History] Furosemide [Lasix] 40 mg PO QPM 05/03/18 [History] Furosemide [Lasix] 80 mg PO QAM 05/03/18 [History] Garlic 1,000 mg PO DAILY 05/03/18 [History] Metoprolol [Lopressor] 25 mg PO BID 05/03/18 [History] Multivit-Min/Iron/Folic Acid/K [Adults Multivitamin Tablet] 1 tab PO DAILY 05/03/18 [History] Potassium Chloride [K-Tab ER] 10 meq PO DAILY 05/09/18 [History] Ascorbic Acid [Vitamin C] 500 mg PO DAILY 05/10/18 [History] Ciprofloxacin [Cipro] 500 mg PO BID #4 tablet 05/17/18 [Rx] metroNIDAZOLE [Flagyl] 500 mg PO BID #4 tablet 05/17/18 [Rx] Allergies/Adverse Reactions: Allergy/AdvReac Type Severity Reaction Status Date / Time adhesive tape Allergy Rash Verified 05/09/18 19:47 Sulfa (Sulfonamide Allergy Hives Verified 05/10/18 13:36 Antibiotics) titanium Allergy Hives Verified 05/10/18 13:36 - Respiratory Orders Oxygen / L per min (2L) Smoking Cessation: Smoking cessation has been advised. For more information, call the [place] Tobacco Quit Line at 2-420-LMJV-NOW. - Lab Orders Lab Orders: CBC (3 days from discharge: 05/20/18) - Advance Directives Code Status: Full Code - Mobility Orders Ambulate - Rehabiliation Orders Rehab Potential: Fair Rehab Orders: Evaluation for Physical Therapy, Evaluation for Occupational Therapy - Diet Orders Regular CERTIFICATION: Transferring to [facility]. Hemodynamically stable, no acute bleed, s/p scope showing colitis, on admission held Coumadin (she has hx of valvular disease); 2 more days of cipro and flagyl (colitis; incidental UTI); Important to follow up with GI, Cards, PCP for resumption of anticoagulation Iron deficient per labs, recommend iron supplementation few weeks post colitis resolution; Repeat CBC 3 days I certify that the transfer of the above named patient to an Extended Care Facility is necessary for the continuing treatment of the diagnosis listed. The above information is true and accurate reflection of patient's current condition. Confidential - Redisclosure prohibited without a patient's written consent. <Kriss Herndon - Last Filed: 05/17/18 13:01> - Diagnosis (1) UTI (urinary tract infection) Status: Acute (2) Acute blood loss anemia Status: Acute (3) CKD (chronic kidney disease) Status: Acute (4) Colitis Status: Acute (5) GI bleed Status: Resolved (6) Leukocytosis Status: Acute (7) Afib Status: Chronic (8) CAD (coronary artery disease) Status: Chronic (9) CHF (congestive heart failure) Status: Acute - Respiratory Orders Oxygen / L per min (2L and wean) Smoking Cessation: Smoking cessation has been advised. For more information, call the [place] Tobacco Quit Line at 1-960-JBVI-NOW. - Diet Orders No Added Salt (SANDRA), Cardiac CERTIFICATION: I certify that the transfer of the above named patient to an Extended Care Facility is necessary for the continuing treatment of the diagnosis listed. The above information is true and accurate reflection of patient's current condition. Confidential - Redisclosure prohibited without a patient's written consent.
[2018-05-17 17:00] VITALS: BP 116/50
== END 2018-05-17 18:21 | DRG 377 ==
LOC: 2NENU 19:17 → EMEROOARM 19:17 → 2NENU 23:20 → SUATTDRO 05-10 01:29
PROVIDERS: ADMIT Internal Medicine; ATTEND Internal Medicine

== ENCOUNTER 2022-01-28 15:08 | Inpatient (IN) ==
[2022-01-28 20:19] LABS: Basophils % 0.1 %; Hematocrit 39.2 % (35.3-44.9); Hemoglobin 12.9 g/dL (11.5-15.4); Immature Granulocytes % 0.8 % (0-4); Lymphocytes # 0.6 K/mcL (0.6-4.6); Lymphocytes % 2.8 %; Mean Corpuscular HGB Conc 32.9 g/dL (31.6-35.5); Mean Corpuscular Hemoglobin 31.4 pg (28.0-33.3); Mean Corpuscular Volume 95.4 fL (83.0-100.0); Mean Platelet Volume 12.1 fL (9.4-12.4); Monocytes # 1.1 K/mcL (0.0-1.3); Monocytes % 5.4 %; Neutrophils # 18.3 K/mcL (1.6-8.9); Platelet Count 155 K/mcL (140-400); Red Blood Count 4.11 M/mcL (3.82-4.97); Red Cell Distribution Width 14.8 % (11.5-14.5); Segmented Neutrophils % 90.9 %; White Blood Count 20.1 K/mcL (4.3-11.1)
[2022-01-28 21:06] LABS: Troponin I 0.04 ng/mL (< 0.04)
[2022-01-28 21:26] LABS: Calcium 8.9 mg/dL (8.6-10.3); Potassium 4.5 mEq/L (3.5-5.1)
[2022-01-28] MEDS ORDERED: Iopamidol - 370 500 ML MLS IVP ONE (21:33)
[2022-01-29] MEDS ORDERED: cefTRIAXone 1,000 MG in 0.9 % Sodium Chloride Mini Bag 100 ML IVPB ONE (00:23)
[2022-01-29] MEDS ORDERED: Naloxone 0.4 MG/ML INJ IVP PRN (01:16)
[2022-01-29] MEDS ORDERED: Fluconazole 150 MG TABLET PO ONE (01:50)
[2022-01-29 04:14] LABS: Basophils % 0.3 %; Eosinophils % 0.2 %; Hematocrit 33.1 % (35.3-44.9); Immature Granulocytes % 0.5 % (0-4); Lymphocytes # 1.2 K/mcL (0.6-4.6); Lymphocytes % 8.9 %; Mean Corpuscular HGB Conc 32.9 g/dL (31.6-35.5); Mean Corpuscular Hemoglobin 31.3 pg (28.0-33.3); Mean Corpuscular Volume 95.1 fL (83.0-100.0); Mean Platelet Volume 12.4 fL (9.4-12.4); Monocytes # 1.5 K/mcL (0.0-1.3); Monocytes % 11.5 %; Neutrophils # 10.4 K/mcL (1.6-8.9); Platelet Count 133 K/mcL (140-400); Red Blood Count 3.48 M/mcL (3.82-4.97); Red Cell Distribution Width 14.7 % (11.5-14.5); Segmented Neutrophils % 78.6 %; White Blood Count 13.3 K/mcL (4.3-11.1)
[2022-01-29 04:15] LABS: Hemoglobin 10.9 g/dL (11.5-15.4)
[2022-01-29 04:43] LABS: Albumin 3.4 g/dL (3.5-5.7); Albumin/Globulin Ratio 1.2 (1.1-2.2); Bilirubin,Total 0.8 mg/dL (0.3-1.0); Calcium 8.2 mg/dL (8.6-10.3); Globulin 2.9 g/dL (2.4-3.5); Magnesium 1.4 mg/dL (1.6-2.6); Phosphorous 3.8 mg/dL (2.7-4.5); Potassium 3.7 mEq/L (3.5-5.1); Total Protein 6.3 g/dL (6.4-8.9); Troponin I 0.06 ng/mL (< 0.04)
[2022-01-29] MEDS ORDERED: Vancomycin 1,250 MG/262.5 ML IV.SOLN IVPB ONE (05:00)
[2022-01-29] MEDS ORDERED: *HR* Dextrose 50 % in Water (Syg) 50 ML SYRINGE IVP PRN (05:46)
[2022-01-29] MEDS ORDERED: Dextrose Gel 15 GM/37.5 ML TUBE PO PRN ×2 (05:46)
[2022-01-29] MEDS ORDERED: D5% in Water 1,000 ML IVC PRN (05:46)
[2022-01-29] MEDS ORDERED: 0.9 % Sodium Chloride 1,000 ML IVC SCH (06:00)
[2022-01-29] MEDS ORDERED: Cefepime HCl 2,000 MG in 0.9 % Sodium Chloride Mini Bag 100 ML IVPB SCH (08:00)
[2022-01-29 09:04] LABS: INR 1.1; Prothrombin Time 12.4 Seconds (9.4-12.1)
[2022-01-29 09:07] LABS: Activated Partial Thrombo Time 27.9 Seconds (26.0-36.0)
[2022-01-29 09:12] LABS: Chol/HDL Ratio 3.1 (0-4.9)
[2022-01-29 09:21] LABS: Thyroid Stimulating Hormone 1.425 mcIU/mL (0.340-5.600)
[2022-01-29] MEDS: Calcium Gluconate 1gm/50mL 1 GM/50 ML BAG IVPB SCH ×2 (09:33→12:19)
[2022-01-29] MEDS: Multivit/Ca/Min/Fe/FA 1 TAB TABLET PO SCH (09:37)
[2022-01-29] MEDS: Aspirin Enteric Coated 81 MG Tablet PO SCH (09:37)
[2022-01-29] MEDS: Lactobacillus 1 EACH CAP.SPRINK PO SCH ×2 (10:33→20:04)
[2022-01-29 11:03] LABS: Estimated Average Glucose 128 mg/dl; Hemoglobin A1C 6.1 %
[2022-01-29] MEDS: *HR* HYDROcodone/Acet 5/325 mg TABLET PO PRN (11:55)
[2022-01-29] MEDS ORDERED: Cefepime HCl 2,000 MG in 0.9 % Sodium Chloride 10 ML IVP SCH (21:00)
[2022-01-30] MEDS: *HR* HYDROcodone/Acet 5/325 mg TABLET PO PRN ×2 (02:51→09:35)
[2022-01-30 05:25] LABS: Basophils # 0.1 K/mcL (0.0-0.2); Basophils % 0.5 %; Eosinophils # 0.2 K/mcL (0.0-0.6); Eosinophils % 1.1 %; Hematocrit 27.9 % (35.3-44.9); Hemoglobin 9.4 g/dL (11.5-15.4); Immature Granulocytes % 0.7 % (0-4); Lymphocytes # 0.7 K/mcL (0.6-4.6); Lymphocytes % 4.6 %; Mean Corpuscular HGB Conc 33.7 g/dL (31.6-35.5); Mean Corpuscular Hemoglobin 32.4 pg (28.0-33.3); Mean Corpuscular Volume 96.2 fL (83.0-100.0); Monocytes # 1.4 K/mcL (0.0-1.3); Monocytes % 9.1 %; Neutrophils # 12.5 K/mcL (1.6-8.9); Platelet Count 103 K/mcL (140-400); Red Cell Distribution Width 15.2 % (11.5-14.5); White Blood Count 14.9 K/mcL (4.3-11.1)
[2022-01-30 07:17] LABS: Calcium 8.1 mg/dL (8.6-10.3); Troponin I 0.1 ng/mL (< 0.04)
[2022-01-30] MEDS: Ampicillin/Sulbactam 3,000 MG in 0.9 % Sodium Chloride Mini Bag 100 ML IVPB SCH ×3 (09:36→21:48)
[2022-01-30] MEDS: Lactobacillus 1 EACH CAP.SPRINK PO SCH ×2 (09:36→19:48)
[2022-01-30] MEDS: Multivit/Ca/Min/Fe/FA 1 TAB TABLET PO SCH (09:36)
[2022-01-30] MEDS: Aspirin Enteric Coated 81 MG Tablet PO SCH (09:36)
[2022-01-30] MEDS: 0.9 % Sodium Chloride 1,000 ML IVC SCH (12:19)
[2022-01-30] MEDS: Ondansetron 4 MG/2 ML VIAL IVP PRN (19:47)
[2022-01-30] MEDS: Pantoprazole 40 MG VIAL IVP SCH (21:47)
[2022-01-31] MEDS: 0.9 % Sodium Chloride 1,000 ML IVC SCH (02:52)
[2022-01-31 03:00] LABS: Calcium 7.5 mg/dL (8.6-10.3); Potassium 3.9 mEq/L (3.5-5.1)
[2022-01-31 05:13] LABS: Bacteria,Urine Few per hpf (None-Few); Bilirubin,Urine Negative (Negative); Blood,Urine Small (Negative); Budding Yeast,Urine Few per hpf (None Seen); Clarity,Urine Turbid (Clear); Color,Urine Yellow (Yellow); Glucose,Urine (UA) Normal (Normal); Ketones,Urine Trace mg/dL (Negative); Leukocyte Esterase,Urine Large (Negative); Mucus,Urine Few per lpf (None-Few); Nitrite,Urine Negative (Negative); Protein,Urine 50 mg/dL (Neg-Trace); Specific Gravity,Urine 1.029 (1.010-1.025); Squamous Epithelial Cell,Urine Few per hpf (None-Few); Transitional Epi Cells,Urine Moderate per hpf (None-Few); Urobilinogen,Urine Normal (Normal); WBC,Urine TNTC per hpf (0-3)
[2022-01-31 05:51] LABS: Red Cell Distribution Width 15.3 % (11.5-14.5)
[2022-01-31 05:53] LABS: Hematocrit 28.8 % (35.3-44.9); Mean Corpuscular HGB Conc 31.3 g/dL (31.6-35.5); Mean Corpuscular Hemoglobin 31.8 pg (28.0-33.3); Mean Corpuscular Volume 101.8 fL (83.0-100.0); Mean Platelet Volume 12.7 fL (9.4-12.4); Red Blood Count 2.83 M/mcL (3.82-4.97); White Blood Count 10.4 K/mcL (4.3-11.1)
[2022-01-31 05:55] LABS: Platelet Count 97 K/mcL (140-400)
[2022-01-31 09:25] LABS: Burr Cells 1+ (Not Present); Eosinophils # 0.6 K/mcL (0.0-0.6); Lymphocytes # 0.8 K/mcL (0.6-4.6); Monocytes # 2.1 K/mcL (0.0-1.3); Neutrophils # 6.9 K/mcL (1.6-8.9); Platelet Estimate Decreased (Normal)
[2022-01-31 09:26] LABS: Anisocytosis 1+ (Not Present); Poikilocytosis 1+ (Not Present)
[2022-01-31] MEDS: Aspirin Enteric Coated 81 MG Tablet PO SCH (09:45)
[2022-01-31] MEDS: Multivit/Ca/Min/Fe/FA 1 TAB TABLET PO SCH (09:45)
[2022-01-31] MEDS: Pantoprazole 40 MG VIAL IVP SCH (09:46)
[2022-01-31] MEDS: Lactobacillus 1 EACH CAP.SPRINK PO SCH ×2 (09:46→19:37)
[2022-01-31] MEDS: Ampicillin/Sulbactam 3,000 MG in 0.9 % Sodium Chloride Mini Bag 100 ML IVPB SCH ×2 (09:49→21:37)
[2022-02-01 05:33] LABS: Hematocrit 25.9 % (35.3-44.9); Mean Corpuscular Volume 98.1 fL (83.0-100.0); Red Blood Count 2.64 M/mcL (3.82-4.97); Segmented Neutrophils % 71.1 %
[2022-02-01 05:34] LABS: Basophils % 0.3 %; Eosinophils # 0.3 K/mcL (0.0-0.6); Eosinophils % 3.6 %; Hemoglobin 8.3 g/dL (11.5-15.4); Immature Granulocytes % 0.8 % (0-4); Immature Platelets 12.5 % (1.1-6.1); Lymphocytes # 0.9 K/mcL (0.6-4.6); Lymphocytes % 10.9 %; Mean Corpuscular Hemoglobin 31.4 pg (28.0-33.3); Monocytes % 13.3 %; Neutrophils # 6.1 K/mcL (1.6-8.9); Platelet Count 108 K/mcL (140-400); Red Cell Distribution Width 15.1 % (11.5-14.5); White Blood Count 8.6 K/mcL (4.3-11.1)
[2022-02-01 05:41] LABS: Monocytes # 1.1 K/mcL (0.0-1.3)
[2022-02-01 05:55] LABS: Calcium 7.8 mg/dL (8.6-10.3); Potassium 3.8 mEq/L (3.5-5.1)
[2022-02-01] MEDS: Aspirin Enteric Coated 81 MG Tablet PO SCH (10:12)
[2022-02-01] MEDS: Lactobacillus 1 EACH CAP.SPRINK PO SCH ×2 (10:12→19:33)
[2022-02-01] MEDS: Multivit/Ca/Min/Fe/FA 1 TAB TABLET PO SCH (10:15)
[2022-02-01] MEDS: Pantoprazole 40 MG VIAL IVP SCH (10:15)
[2022-02-01] MEDS: *HR* HYDROcodone/Acet 5/325 mg TABLET PO PRN (19:33)
[2022-02-01] MEDS ORDERED: Simethicone 80 MG TAB.CHEW PO PRN (21:08)
[2022-02-01] MEDS: Ondansetron 4 MG/2 ML VIAL IVP PRN (22:43)
[2022-02-02 02:50] LABS: Basophils # 0.1 K/mcL (0.0-0.2); Basophils % 0.5 %; Eosinophils # 0.2 K/mcL (0.0-0.6); Eosinophils % 2.4 %; Hematocrit 25.7 % (35.3-44.9); Hemoglobin 8.1 g/dL (11.5-15.4); Immature Granulocytes % 0.8 % (0-4); Lymphocytes # 0.9 K/mcL (0.6-4.6); Lymphocytes % 9.4 %; Mean Corpuscular HGB Conc 31.5 g/dL (31.6-35.5); Mean Corpuscular Hemoglobin 31.3 pg (28.0-33.3); Mean Corpuscular Volume 99.2 fL (83.0-100.0); Monocytes # 1.3 K/mcL (0.0-1.3); Monocytes % 13.3 %; Neutrophils # 7.4 K/mcL (1.6-8.9); Platelet Count 111 K/mcL (140-400); Red Blood Count 2.59 M/mcL (3.82-4.97); Red Cell Distribution Width 15.2 % (11.5-14.5); Segmented Neutrophils % 73.6 %
[2022-02-02] MEDS: Pantoprazole 40 MG VIAL IVP SCH (08:58)
[2022-02-02] MEDS: Lactobacillus 1 EACH CAP.SPRINK PO SCH ×2 (08:59→20:34)
[2022-02-02] MEDS: Multivit/Ca/Min/Fe/FA 1 TAB TABLET PO SCH (08:59)
[2022-02-02] MEDS: Aspirin Enteric Coated 81 MG Tablet PO SCH (08:59)
[2022-02-02] MEDS: Amoxicillin/Clavulanate 500 MG TABLET PO SCH (17:37)
[2022-02-02] MEDS: *HR* Heparin 5,000 UNIT/ML VIAL SQ SCH (17:37)
[2022-02-03] MEDS: *HR* Heparin 5,000 UNIT/ML VIAL SQ SCH ×2 (05:27→17:30)
[2022-02-03 06:41] LABS: Basophils # 0.1 K/mcL (0.0-0.2); Basophils % 0.6 %; Eosinophils # 0.1 K/mcL (0.0-0.6); Eosinophils % 1.3 %; Hematocrit 27.5 % (35.3-44.9); Hemoglobin 8.7 g/dL (11.5-15.4); Immature Granulocytes % 1.2 % (0-4); Lymphocytes % 9.4 %; Mean Corpuscular HGB Conc 31.6 g/dL (31.6-35.5); Mean Corpuscular Hemoglobin 31.5 pg (28.0-33.3); Mean Corpuscular Volume 99.6 fL (83.0-100.0); Mean Platelet Volume 12.5 fL (9.4-12.4); Monocytes # 1.2 K/mcL (0.0-1.3); Monocytes % 11.2 %; Neutrophils # 7.9 K/mcL (1.6-8.9); Platelet Count 133 K/mcL (140-400); Red Blood Count 2.76 M/mcL (3.82-4.97); Red Cell Distribution Width 15.9 % (11.5-14.5); Segmented Neutrophils % 76.3 %; White Blood Count 10.4 K/mcL (4.3-11.1)
[2022-02-03] MEDS: Amoxicillin/Clavulanate 500 MG TABLET PO SCH ×2 (08:39→17:30)
[2022-02-03] MEDS: Multivit/Ca/Min/Fe/FA 1 TAB TABLET PO SCH (08:39)
[2022-02-03] MEDS: Lactobacillus 1 EACH CAP.SPRINK PO SCH ×2 (08:39→19:47)
[2022-02-03] MEDS: Aspirin Enteric Coated 81 MG Tablet PO SCH (08:39)
[2022-02-03] MEDS: Pantoprazole 40 MG VIAL IVP SCH (08:39)
[2022-02-03] MEDS ORDERED: Furosemide 40 MG TABLET PO SCH ×2 (09:00→18:00)
[2022-02-03] MEDS: *HR* HYDROcodone/Acet 5/325 mg TABLET PO PRN (22:53)
[2022-02-04 03:08] LABS: Basophils % 0.5 %; Hemoglobin 8.6 g/dL (11.5-15.4); Mean Corpuscular Volume 103.7 fL (83.0-100.0)
[2022-02-04 03:10] LABS: Basophils # 0.1 K/mcL (0.0-0.2); Eosinophils # 0.3 K/mcL (0.0-0.6); Eosinophils % 2.9 %; Immature Granulocytes % 0.8 % (0-4); Immature Platelets 17.5 % (1.1-6.1); Lymphocytes # 0.8 K/mcL (0.6-4.6); Lymphocytes % 8.1 %; Mean Corpuscular HGB Conc 30.7 g/dL (31.6-35.5); Mean Corpuscular Hemoglobin 31.9 pg (28.0-33.3); Mean Platelet Volume 13.2 fL (9.4-12.4); Monocytes # 1.1 K/mcL (0.0-1.3); Monocytes % 11.5 %; Nucleated Red Blood Cells 0.2 /100 WBC (0); Platelet Count 122 K/mcL (140-400); Red Cell Distribution Width 16.3 % (11.5-14.5); Segmented Neutrophils % 76.2 %; White Blood Count 9.8 K/mcL (4.3-11.1)
[2022-02-04 03:16] LABS: Neutrophils # 7.5 K/mcL (1.6-8.9)
[2022-02-04 03:22] LABS: Calcium 7.9 mg/dL (8.6-10.3); Potassium 3.8 mEq/L (3.5-5.1)
[2022-02-04] MEDS: *HR* Heparin 5,000 UNIT/ML VIAL SQ SCH ×2 (05:02→22:21)
[2022-02-04] MEDS ORDERED: Ringers Solution, Lactated 1,000 ML IVC SCH (07:30)
[2022-02-04] MEDS ORDERED: Furosemide 20 MG TABLET PO SCH (08:00)
[2022-02-04] MEDS: Multivit/Ca/Min/Fe/FA 1 TAB TABLET PO SCH (09:35)
[2022-02-04] MEDS: Lactobacillus 1 EACH CAP.SPRINK PO SCH ×2 (09:35→23:30)
[2022-02-04] MEDS: Amoxicillin/Clavulanate 500 MG TABLET PO SCH ×2 (09:35→16:22)
[2022-02-04] MEDS: Sodium Bicarbonate 150 MEQ in D5% in Water 1,000 ML IVC SCH ×2 (09:35→23:29)
[2022-02-04] MEDS: Aspirin Enteric Coated 81 MG Tablet PO SCH (09:35)
[2022-02-04] MEDS: Ondansetron 4 MG/2 ML VIAL IVP PRN (15:51)
[2022-02-05 03:46] LABS: Calcium 7.4 mg/dL (8.6-10.3); Potassium 3.3 mEq/L (3.5-5.1)
[2022-02-05 03:47] LABS: % Iron Saturation 9 % (15-50); Iron 22 mcg/dL (50-170); Transferrin 174 mg/dL (203-362)
[2022-02-05 04:04] LABS: Ferritin 544 ng/mL (10-120)
[2022-02-05] MEDS: *HR* Heparin 5,000 UNIT/ML VIAL SQ SCH ×2 (05:52→17:44)
[2022-02-05 06:11] LABS: Bacteria,Urine Few per hpf (None-Few); Bilirubin,Urine Negative (Negative); Blood,Urine Negative (Negative); Clarity,Urine Clear (Clear); Color,Urine Yellow (Yellow); Glucose,Urine (UA) Normal (Normal); Hyaline Casts,Urine Few per lpf (None Seen); Ketones,Urine Trace mg/dL (Negative); Leukocyte Esterase,Urine Trace (Negative); Mucus,Urine Few per lpf (None-Few); Nitrite,Urine Negative (Negative); PH,Urine 5.5 pH Units (5.0-8.0); Protein,Urine 30 mg/dL (Neg-Trace); RBC,Urine 0-3 per hpf (0-3); Specific Gravity,Urine 1.021 (1.010-1.025); WBC,Urine 0-3 per hpf (0-3)
[2022-02-05 06:26] LABS: Creatinine,Urine 107 mg/dL; Protein/Creatinine Ratio,Urine 0.67 mg/mg (0.00-0.20); Sodium, Urine < 10.0 mEq/L
[2022-02-05] MEDS: Sodium Bicarbonate 150 MEQ in D5% in Water 1,000 ML IVC SCH (09:01)
[2022-02-05] MEDS: Aspirin Enteric Coated 81 MG Tablet PO SCH (09:02)
[2022-02-05] MEDS: Lactobacillus 1 EACH CAP.SPRINK PO SCH ×2 (09:02→21:25)
[2022-02-05] MEDS: Amoxicillin/Clavulanate 500 MG TABLET PO SCH ×2 (09:02→17:44)
[2022-02-05] MEDS: Multivit/Ca/Min/Fe/FA 1 TAB TABLET PO SCH (09:02)
[2022-02-05] MEDS ORDERED: Potassium Chloride Elixir 20 MEQ/15 ML UDC PO ONE (12:37)
[2022-02-05] MEDS ORDERED: Furosemide 20 MG/2 ML VIAL IVP ONE ×3 (14:45→18:15)
[2022-02-05] MEDS ORDERED: Albumin 25% 25gram/100mL 25 GM/100 ML IV.SOLN IVPB SCH (16:00)
[2022-02-05] MEDS: Albumin 25% 25gram/100mL 25 GM/100 ML IV.SOLN IVPB SCH (18:45)
[2022-02-05] MEDS: Acetaminophen 325 MG TABLET PO PRN (22:42)
[2022-02-06] MEDS: Albumin 25% 25gram/100mL 25 GM/100 ML IV.SOLN IVPB SCH ×3 (00:16→16:12)
[2022-02-06 03:35] LABS: Calcium 7.8 mg/dL (8.6-10.3); Potassium 3.7 mEq/L (3.5-5.1)
[2022-02-06] MEDS: *HR* Heparin 5,000 UNIT/ML VIAL SQ SCH ×2 (05:32→18:37)
[2022-02-06] MEDS: Aspirin Enteric Coated 81 MG Tablet PO SCH (08:18)
[2022-02-06] MEDS: Lactobacillus 1 EACH CAP.SPRINK PO SCH ×2 (08:18→22:09)
[2022-02-06] MEDS: Multivit/Ca/Min/Fe/FA 1 TAB TABLET PO SCH (08:18)
[2022-02-06] MEDS: Amoxicillin/Clavulanate 500 MG TABLET PO SCH (09:45)
[2022-02-06] MEDS: Melatonin 3 MG TABLET PO PRN (22:09)
[2022-02-07] MEDS: Albumin 25% 25gram/100mL 25 GM/100 ML IV.SOLN IVPB SCH ×3 (02:37→17:09)
[2022-02-07 05:49] LABS: Calcium 8.5 mg/dL (8.6-10.3); Potassium 3.9 mEq/L (3.5-5.1)
[2022-02-07] MEDS: *HR* Heparin 5,000 UNIT/ML VIAL SQ SCH ×2 (06:25→17:11)
[2022-02-07] MEDS: Aspirin Enteric Coated 81 MG Tablet PO SCH (10:18)
[2022-02-07] MEDS: Multivit/Ca/Min/Fe/FA 1 TAB TABLET PO SCH (10:19)
[2022-02-07] MEDS: Lactobacillus 1 EACH CAP.SPRINK PO SCH ×2 (11:03→21:49)
[2022-02-07] MEDS: Melatonin 3 MG TABLET PO PRN (21:50)
[2022-02-08] MEDS: Albumin 25% 25gram/100mL 25 GM/100 ML IV.SOLN IVPB SCH ×3 (01:19→16:20)
[2022-02-08 04:28] LABS: Hematocrit 23.6 % (35.3-44.9); Hemoglobin 7.5 g/dL (11.5-15.4); Mean Corpuscular HGB Conc 31.8 g/dL (31.6-35.5); Mean Corpuscular Hemoglobin 31.1 pg (28.0-33.3); Mean Corpuscular Volume 97.9 fL (83.0-100.0); Mean Platelet Volume 12.7 fL (9.4-12.4); Platelet Count 155 K/mcL (140-400); Red Blood Count 2.41 M/mcL (3.82-4.97); Red Cell Distribution Width 16.1 % (11.5-14.5)
[2022-02-08 05:04] LABS: Calcium 8.8 mg/dL (8.6-10.3); Potassium 3.9 mEq/L (3.5-5.1)
[2022-02-08] MEDS: *HR* Heparin 5,000 UNIT/ML VIAL SQ SCH ×2 (06:51→16:23)
[2022-02-08] MEDS: Aspirin Enteric Coated 81 MG Tablet PO SCH (09:10)
[2022-02-08] MEDS: Lactobacillus 1 EACH CAP.SPRINK PO SCH ×2 (09:10→20:23)
[2022-02-08] MEDS: Multivit/Ca/Min/Fe/FA 1 TAB TABLET PO SCH (09:11)
[2022-02-08] MEDS: *HR* HYDROcodone/Acet 5/325 mg TABLET PO PRN (20:22)
[2022-02-09] MEDS: Albumin 25% 25gram/100mL 25 GM/100 ML IV.SOLN IVPB SCH ×2 (00:05→08:51)
[2022-02-09] MEDS: *HR* HYDROcodone/Acet 5/325 mg TABLET PO PRN (03:27)
[2022-02-09] MEDS: *HR* Heparin 5,000 UNIT/ML VIAL SQ SCH ×2 (05:10→17:00)
[2022-02-09 06:02] LABS: Calcium 9.2 mg/dL (8.6-10.3); Potassium 3.7 mEq/L (3.5-5.1)
[2022-02-09] MEDS: Multivit/Ca/Min/Fe/FA 1 TAB TABLET PO SCH (08:48)
[2022-02-09] MEDS: Lactobacillus 1 EACH CAP.SPRINK PO SCH ×2 (08:48→19:51)
[2022-02-09] MEDS: Aspirin Enteric Coated 81 MG Tablet PO SCH (08:49)
[2022-02-09] MEDS: 0.9 % Sodium Chloride 1,000 ML IVC SCH (12:20)
[2022-02-10] MEDS: *HR* Heparin 5,000 UNIT/ML VIAL SQ SCH ×2 (04:56→18:18)
[2022-02-10 06:18] LABS: Calcium 9.1 mg/dL (8.6-10.3)
[2022-02-10] MEDS: Aspirin Enteric Coated 81 MG Tablet PO SCH (07:52)
[2022-02-10] MEDS: Multivit/Ca/Min/Fe/FA 1 TAB TABLET PO SCH (07:52)
[2022-02-10] MEDS: Lactobacillus 1 EACH CAP.SPRINK PO SCH ×2 (07:52→19:46)
[2022-02-10] MEDS: 0.9 % Sodium Chloride 1,000 ML IVC SCH (12:16)
[2022-02-10] MEDS: Albumin 25% 25gram/100mL 25 GM/100 ML IV.SOLN IVPB SCH ×2 (18:18→23:58)
[2022-02-11] MEDS: *HR* Heparin 5,000 UNIT/ML VIAL SQ SCH ×2 (04:56→20:36)
[2022-02-11 06:36] LABS: Calcium 9.3 mg/dL (8.6-10.3); Potassium 3.9 mEq/L (3.5-5.1)
[2022-02-11] MEDS: Lactobacillus 1 EACH CAP.SPRINK PO SCH ×2 (09:38→22:03)
[2022-02-11] MEDS: Aspirin Enteric Coated 81 MG Tablet PO SCH (09:38)
[2022-02-11] MEDS: Multivit/Ca/Min/Fe/FA 1 TAB TABLET PO SCH (09:38)
[2022-02-11] MEDS: Albumin 25% 25gram/100mL 25 GM/100 ML IV.SOLN IVPB SCH ×2 (09:38→19:48)
[2022-02-11] MEDS ORDERED: Albumin 25% 25gram/100mL 25 GM/100 ML IV.SOLN ONE (18:55)
[2022-02-11] MEDS ORDERED: *HR* Heparin 5,000 UNIT/ML VIAL ONE (20:33)
[2022-02-12] MEDS: Albumin 25% 25gram/100mL 25 GM/100 ML IV.SOLN IVPB SCH ×3 (00:27→15:26)
[2022-02-12] MEDS: *HR* Heparin 5,000 UNIT/ML VIAL SQ SCH ×2 (06:03→17:10)
[2022-02-12 06:26] LABS: Calcium 9.4 mg/dL (8.6-10.3); Potassium 4.4 mEq/L (3.5-5.1)
[2022-02-12 10:15] LABS: Hematocrit 25.8 % (35.3-44.9); Hemoglobin 8.3 g/dL (11.5-15.4); Mean Corpuscular HGB Conc 32.2 g/dL (31.6-35.5); Mean Corpuscular Hemoglobin 32.3 pg (28.0-33.3); Mean Corpuscular Volume 100.4 fL (83.0-100.0); Platelet Count 155 K/mcL (140-400); Red Blood Count 2.57 M/mcL (3.82-4.97); Red Cell Distribution Width 17.4 % (11.5-14.5); White Blood Count 13.2 K/mcL (4.3-11.1)
[2022-02-12] MEDS: Lactobacillus 1 EACH CAP.SPRINK PO SCH ×2 (10:36→21:10)
[2022-02-12] MEDS: Aspirin Enteric Coated 81 MG Tablet PO SCH (10:36)
[2022-02-12] MEDS: Multivit/Ca/Min/Fe/FA 1 TAB TABLET PO SCH (10:36)
[2022-02-12] MEDS ORDERED: Furosemide 40 MG/4 ML VIAL IVP ONE (11:40)
[2022-02-12 12:29] LABS: Complement C3 53 mg/dL (87-200)
[2022-02-12] MEDS: Acetaminophen 325 MG TABLET PO PRN ×2 (15:25→21:10)
[2022-02-13] MEDS: Albumin 25% 25gram/100mL 25 GM/100 ML IV.SOLN IVPB SCH ×3 (00:12→16:17)
[2022-02-13] MEDS: *HR* Heparin 5,000 UNIT/ML VIAL SQ SCH ×2 (05:23→16:17)
[2022-02-13 06:30] LABS: Calcium 8.9 mg/dL (8.6-10.3); Potassium 4.4 mEq/L (3.5-5.1)
[2022-02-13] MEDS: Aspirin Enteric Coated 81 MG Tablet PO SCH (11:08)
[2022-02-13] MEDS: Lactobacillus 1 EACH CAP.SPRINK PO SCH ×2 (11:08→21:27)
[2022-02-13] MEDS: Multivit/Ca/Min/Fe/FA 1 TAB TABLET PO SCH (11:10)
[2022-02-13] MEDS: Ondansetron 4 MG/2 ML VIAL IVP PRN (16:17)
[2022-02-13 22:51] LABS: C.difficile Toxin A/B Gene PCR Not detected (Not detect); Campylobacter by PCR Not detected (Not detect); Enteroaggregative E.coli(EAEC) Not detected (Not detect); Enteropathogenic E.coli(EPEC) Not detected (Not detect); Enterotoxigenic E.coli (ETEC) Not detected (Not detect); Plesiomonas shigelloides PCR Not detected (Not detect); Salmonella PCR Not detected (Not detect); Vibrio PCR Not detected (Not detect); Vibrio cholerae PCR Not detected (Not detect); Yersinia enterocolitica PCR Not detected (Not detect)
[2022-02-13 22:52] LABS: Adenovirus F 40/41 PCR Not detected (Not detect); Astrovirus PCR Not detected (Not detect); Cryptosporidium by PCR Not detected (Not detect); Cyclospora cayetanensis PCR Not detected (Not detect); Entamoeba histolytica PCR Not detected (Not detect); Giardia lamblia PCR Not detected (Not detect); Norovirus GI/GII PCR Not detected (Not detect); Rotavirus A PCR Not detected (Not detect); Sapovirus PCR Not detected (Not detect); Shig/EnteroinvasiveE coli EIEC Not detected (Not detect); Shigalike tox-prod E coli STEC Not detected (Not detect)
[2022-02-14 02:14] LABS: Calcium 8.8 mg/dL (8.6-10.3); Potassium 5.5 mEq/L (3.5-5.1)
[2022-02-14] MEDS: *HR* Heparin 5,000 UNIT/ML VIAL SQ SCH ×2 (05:11→18:57)
[2022-02-14 07:54] VITALS: BP 119/71
[2022-02-14] MEDS: Lactobacillus 1 EACH CAP.SPRINK PO SCH (08:14)
[2022-02-14] MEDS: Aspirin Enteric Coated 81 MG Tablet PO SCH (08:14)
[2022-02-14] MEDS: Multivit/Ca/Min/Fe/FA 1 TAB TABLET PO SCH (08:14)
[2022-02-14 11:19] VITALS: PULSE 74; TEMP 98; O2SAT 96
[2022-02-14 11:30] LABS: Kappa Qnt Free Light Chains 124.31 mg/L (3.30-19.40); Lambda Qnt Free Light Chains 49.95 mg/L (5.71-26.30)
[2022-02-14 11:37] LABS: ANA IgG by ELISA NONE DETECTED (None Detected)
[2022-02-16 03:18] LABS: Alpha 2 Globulin (PEP) 0.51 g/dL (0.48-1.05); Beta Globulin (PEP) 0.39 g/dL (0.48-1.10)
[2022-02-16 16:43] LABS: ANCA IFA Titer <1:20 (<1:20)
[2022-02-17 09:50] LABS: IFE Reflexed IFE Done
[2022-02-17 10:00] LABS: ANCA IFA Pattern NONE DETECTED (None Detected); Serine Protease-3 Antibody 0 AU/mL (0-19)
[2022-02-17 10:42] LABS: Immunoglobulin A 143 mg/dL (68-408); Immunoglobulin G 396 mg/dL (768-1632); Immunoglobulin M 32 mg/dL (35-263)
== END 2022-02-14 20:47 | disposition expired | DRG 871 ==
LOC: 2ANU 15:08 → EMEROOARM 15:08 → SUATTDRO 01-29 15:28 → 2ANU 01-29 16:43 → SUATTDRO 01-30 13:52 → 2ANU 02-14 17:57
PROVIDERS: ADMIT Internal Medicine; ATTEND Internal Medicine